=== PATIENT | male | born 1965 | race Caucasian/White ===

== ENCOUNTER 2016-11-29 18:09 | Emergency (ER) | payer OTHER ==
--- NOTE | 2016-11-29 20:06 | ER Document Report ---
ED Medical Screen (RME) - General Chief Complaint: Syncope Stated Complaint: SYNCOPAL EPISODE/RIGHT THUMB PAIN Time Seen by Provider: 11/29/16 19:56 Notes: This 51-year-old male patient who moved here in June of this year and is seen at [facility]. His past medical history is significant for a one-vessel bypass 2 years ago, 2 stents, with a third stent placed when 1 of the initial stents became occluded. He started a job today with [employer]. This is his first day at work. He has not been out working or acclimating to the high humidity and heat we have experienced recently. Reports 2 syncopal episodes: The first 1 was this morning when he was taking a drink of water and aspirated the water, causing him to gag and pass out. The second episode was this afternoon when he was walking up a steep incline or meridian where he had been cleaning dark from around brick, when he got to the top of the heel he became lightheaded and passed out. The patient states he feels well at this time. I have greeted and performed a rapid initial assessment of this patient. A comprehensive ED assessment and evaluation of the patient, analysis of test results and completion of the medical decision making process will be conducted by additional ED providers. TRAVEL OUTSIDE OF THE [place] IN LAST 30 DAYS: No Past Medical History Renal/ Medical History: Denies: Hx Peritoneal Dialysis Physical Exam - Vital signs Vitals: Temp Pulse Resp BP Pulse Ox 99.6 F 101 H 17 105/45 L 97 11/29/16 18:14 11/29/16 18:14 11/29/16 18:14 11/29/16 18:14 11/29/16 18:14 Course - Vital Signs Vital signs: Temp Pulse Resp BP Pulse Ox 99.6 F 101 H 17 105/45 L 97 11/29/16 18:14 11/29/16 18:14 11/29/16 18:14 11/29/16 18:14 11/29/16 18:14
--- NOTE | 2016-11-29 20:32 | EKG REPORT ---
SEVERITY:- ABNORMAL ECG - SINUS RHYTHM LEFT BUNDLE BRANCH BLOCK : Confirmed by: Wayne Carias MD 29-Nov-2016 20:30:49
[2016-11-29 20:44] LABS: HEMOGLOBIN 10.8 g/dL (13.5-17.0); HGB HCT DIFFERENCE 0.4; MEAN CORPUSCULAR HEMOGLOBIN 43.4 pg (27.0-33.4); MEAN CORPUSCULAR HGB CONC 33.8 g/dL (32.0-36.0); RED BLOOD COUNT 2.49 10^6/uL (4.35-5.55); RED CELL DISTRIBUTION WIDTH 15.6 % (11.5-14.0); WHITE BLOOD COUNT 6.3 10^3/uL (4.0-10.5)
[2016-11-29 20:46] LABS: APPEARANCE,URINE CLOUDY; BILIRUBIN,URINE NEGATIVE (NEGATIVE); GLUCOSE, URINE NEGATIVE (NEGATIVE); KETONES,URINE NEGATIVE (NEGATIVE); LEUKOCYTE ESTERASE,URINE TRACE (NEGATIVE); NITRITE,URINE NEGATIVE (NEGATIVE); PROTEIN,URINE 100 mg/dL (NEGATIVE); URINE SPECIFIC GRAVITY 1.017; UROBILINOGEN,URINE NEGATIVE mg/dL (<2.0)
[2016-11-29 20:59] LABS: MEAN CORPUSCULAR VOLUME 128 fl (80-97)
[2016-11-29 21:02] LABS: ALANINE AMINOTRANSFERASE 27 U/L (21-72); ALBUMIN 4.5 g/dL (3.5-5.0); ALKALINE PHOSPHATASE 51 U/L (38-126); ANION GAP 13 (5-19); ASPARTATE AMINO TRANSFERASE 24 U/L (17-59); BILIRUBIN,DIRECT 0.3 mg/dL (0.0-0.4); BILIRUBIN,TOTAL 0.4 mg/dL (0.2-1.3); BLOOD UREA NITROGEN 26 mg/dL (7-20); CALCIUM 10.4 mg/dL (8.4-10.2); CARBON DIOXIDE 26 mmol/L (22-30); CHLORIDE 97 mmol/L (98-107); CREATINE KINASE 198 U/L (55-170); CREATININE RESULT 2.24 mg/dL (0.52-1.25); GLUCOSE 91 mg/dL (75-110); POTASSIUM 4.8 mmol/L (3.6-5.0); SODIUM 135.7 mmol/L (137-145); TOTAL PROTEIN 7.6 g/dL (6.3-8.2)
[2016-11-29 21:04] LABS: BAND NEUTROPHILS % (MANUAL) 1 % (3-5); BASOPHILS % (MANUAL) 0 % (0-2); EOSINOPHILS % (MANUAL) 0 % (0-6); LYMPHOCYTES % (MANUAL) 21 % (13-45); NUCLEATED RED BLOOD CELLS 1 /100 WBC (0); TOTAL CELLS COUNTED 100
--- NOTE | 2016-11-29 21:05 | RADIOLOGY REPORT (SQ) ---
EXAM DESCRIPTION: CHEST PA/LAT COMPLETED DATE/TIME: 11/29/2016 8:27 pm REASON FOR STUDY: syncope x 2 COMPARISON: None. EXAM PARAMETERS: NUMBER OF VIEWS: two views TECHNIQUE: Digital Frontal and Lateral radiographic views of the chest acquired. RADIATION DOSE: NA LIMITATIONS: none FINDINGS: LUNGS AND PLEURA: No acute opacities, masses or pneumothorax. No pleural effusion. MEDIASTINUM AND HILAR STRUCTURES: No masses or contour abnormalities. HEART AND VASCULAR STRUCTURES: Heart normal size. No evidence for failure. BONES: No acute findings. HARDWARE: Left sided stent. OTHER: No other significant finding. IMPRESSION: No acute findings. TECHNICAL DOCUMENTATION: JOB ID: [id number] [employer]- All Rights Reserved
[2016-11-29 21:10] LABS: ACANTHOCYTES SLIGHT; ANISOCYTOSIS SLIGHT; BURR CELLS SLIGHT; OVALOCYTES SLIGHT; POIKILOCYTOSIS SLIGHT; SCHISTOCYTES SLIGHT
[2016-11-29 21:12] LABS: CREATINE KINASE MB 2.04 ng/mL (<4.55); TROPONIN I 0.019 ng/mL
--- NOTE | 2016-11-29 22:02 | ER Document Report ---
ED General - General Chief Complaint: Syncope Stated Complaint: SYNCOPAL EPISODE/RIGHT THUMB PAIN Time Seen by Provider: 11/29/16 19:56 Notes: Patient is a 51-year-old male presents with complaint of syncopal episodes. Patient does have a history of DE in the past. He has had coronary bypass 2 years ago. He has had 3 stents placed. Most recent stent was approximately a year ago. All this was done in [place] with the DE. He recently moved here and is followed by the DE clinic here. He denies any chest pain today. 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 Says he does try to drink water and he gagged on it and passed out. He did not have any chest pain or shortness of breath before or after passing out. He denies a headache. Patient said the same time he passed out he was going up a ramp. He felt hot and sweaty. He says he did pass out. He says he currently feels well. He denies any chest pain or shortness of breath today. He denies any headaches. He denies any weakness or numbness in any of his extremities. He has no other complaints at this time. He denies any chest pain in the last several weeks. TRAVEL OUTSIDE OF THE [place] IN LAST 30 DAYS: No - Related Data Allergies/Adverse Reactions: No Known Allergies Allergy (Unverified 11/29/16 23:13) Past Medical History - Social History Smoking Status: Unknown if Ever Smoked Frequency of alcohol use: None Drug Abuse: None Family History: Reviewed & Not Pertinent Patient has suicidal ideation: No Patient has homicidal ideation: No Renal/ Medical History: Denies: Hx Peritoneal Dialysis Review of Systems - Review of Systems Notes: My Normal Review Basic REVIEW OF SYSTEMS: CONSTITUTIONAL : Denies fever, chills, or sweats. Denies recent illness. EENT: Denies eye, ear, throat, or mouth pain or symptoms. Denies nasal or sinus congestion. CARDIOVASCULAR: Denies chest pain RESPIRATORY: Denies cough, cold, or chest congestion. Denies shortness of breath, difficulty breathing, or wheezing. GASTROINTESTINAL: Denies abdominal pain. Denies nausea, vomiting, or diarrhea. Denies constipation. Last BM: MUSCULOSKELETAL: Denies neck or back pain or joint pain or swelling. SKIN: Denies rash or skin lesions. NEUROLOGICAL: Syncopal episodes 2. denies headache. Denies weakness or paralysis or loss of use of either side. Denies problems with gait or speech. Denies sensory or motor loss. ALL OTHER SYSTEMS REVIEWED AND NEGATIVE. Physical Exam - Vital signs Vitals: Temp Pulse Resp BP Pulse Ox 99.6 F 101 H 17 105/45 L 97 11/29/16 18:14 11/29/16 18:14 11/29/16 18:14 11/29/16 18:14 11/29/16 18:14 - Notes Notes: General Appearance: Well nourished, alert, cooperative, no acute distress, no obvious discomfort. Well-appearing Vitals: reviewed, See vital signs table. Head: no swelling or tenderness to the head Eyes: PERRL, EOMI, Conjuctiva clear Mouth: No decreasd moisture Neck: Supple, no neck tenderness, No thyromegaly Lungs: No wheezing, No rales, No rhonci, No accessory muscle use, good air exchange bilaterally. Heart: Normal rate, Regular rythm, No murmur, no rub Abdomen: Normal BS, soft, No rigidity, No abdominal tenderness, No guarding, no rebound, no abdominal masses, no organomegaly Extremities: strength 5/5 in all extremities, good pulses in all extremities, Patient has swelling and bruising at the base of the right thumb with pain to palpaiton over this area., no edema. Skin: warm, dry, appropriate color, no rash Neuro: speech clear, oriented x 3, normal affect, responds appropriately to questions. Nerves II through XII are intact. Distal sensation intact. Patient moves all extremities without difficulty. Course - Vital Signs Vital signs: Temp Pulse Resp BP Pulse Ox 98.4 F 80 18 121/59 L 96 11/29/16 21:12 11/29/16 21:12 11/29/16 21:12 11/29/16 21:12 11/29/16 21:12 - Laboratory Result Diagrams: 11/29/16 20:15 11/29/16 20:15 Laboratory results interpreted by me: 11/29/16 11/29/16 11/29/16 20:15 20:15 20:20 RBC 2.49 L Hgb 10.8 L Hct 32.0 L MCV 128 H MCH 43.4 H RDW 15.6 H Band Neutrophils % 1 L Sodium 135.7 L Chloride 97 L BUN 26 H Creatinine 2.24 H Est GFR ( Amer) 38 L Est GFR (Non-Af Amer) 31 L Calcium 10.4 H Creatine Kinase 198 H Urine Protein 100 H Urine Blood SMALL H Ur Leukocyte Esterase TRACE H - EKG Interpretation by Me Additional EKG results interpreted by me: 11/29/16 22:01 EKG is reviewed and interpreted by me. EKG shows normal sinus rhythm with a rate of 90 bpm. Patient does have a left bundle branch block. No Old EKG for comparison. PA interval is within normal range. QRS duration QT intervals are prolonged. - Transfer of Care Notes: 11/30/16 00:48 Patient syncopal episode appears consistent with heat exhaustion. He had no concerning symptoms before or after the passing out episode. He had no chest pain or shortness of breath. He had no headache. No focal weakness or numbness. He currently is completely asymptomatic. His troponin and delta troponin are within normal range. EKG shows left bundle branch block which is not surprising being that he has a history of DE and coronary bypass surgery. This time patient will be discharged home but I gave him strict return precautions to return to the ER immediately if he has chest pain, difficulty breathing, head, confusion, or feels unwell. I did give the patient a cock-up splint to wear in order to wear his thumb. On physical exam appears that he could possibly have a gamekeepers type tendon injury of the right thumb. Discharge - Discharge Clinical Impression: Strain of thumb, right Syncope Qualifiers: Syncope type: unspecified Qualified Code(s): R55 - Syncope and collapse Condition: Good Disposition: HOME, SELF-CARE Additional Instructions: Your blood work looking at your heart is normal. There is no evidence of a heart attack. I do not want you to go back to work the rest of this week. Please follow up with your doctor at the [facility] for reevaluation before returning to work. Please stay out of the heat. Please return to the ER immediately if you have any chest pain, difficulty breathing, or recurrent passing out. Return to the ER immediately if you have headache or vomiting. Please continue to wear the splint on your hand for at least 2 weeks. I suspect you may have injured the ligament at the base of your thumb. The splint will allow your thumb to heal appropriately. have your doctor reevaluate your thumb in 2 weeks. Forms: Return to Work
[2016-11-29] MEDS ORDERED: NORMAL SALINE 500 ML IV ONE (22:08)
--- NOTE | 2016-11-29 23:31 | RADIOLOGY REPORT (SQ) ---
EXAM DESCRIPTION: HAND RIGHT 3 VIEWS COMPLETED DATE/TIME: 11/29/2016 10:59 pm REASON FOR STUDY: trauma COMPARISON: None. EXAM PARAMETERS: NUMBER OF VIEWS: Three views. TECHNIQUE: AP, lateral and oblique radiographic images acquired of the right hand. LIMITATIONS: None. FINDINGS: MINERALIZATION: Normal. BONES: No acute fracture or dislocation. No worrisome bone lesions. JOINTS: No effusions. SOFT TISSUES: No soft tissue swelling. No foreign body. OTHER: No other significant finding. IMPRESSION: NO RADIOGRAPHIC EVIDENCE OF ACUTE INJURY. TECHNICAL DOCUMENTATION: JOB ID: [id number] [employer]- All Rights Reserved
[2016-11-30 01:45] VITALS: BP 101/59
[2016-11-30 13:58] LABS: PATH REVIEW PATHOLOGIST REVIEWED
== END 2016-11-30 01:07 | disposition home or self-care (01) ==
LOC: ER 18:09
DX: R55 Syncope and collapse (principal); M79.644 Pain in right finger(s); I25.2 Old myocardial infarction; Z95.1 Presence of aortocoronary bypass graft
CPT/HCPCS: 93005; 99284; 96360; 36415; 82553; 82550; 85025; 80053; 81001; 84484; 71020; 73130; 93010; L3908; J7040

== ENCOUNTER 2017-02-17 00:30 | Emergency (ER) | payer OTHER ==
[2017-02-17] MEDS ORDERED: ASPIRIN 81 MG TABLET, CHEWABLE PO ONE (00:53)
[2017-02-17] MEDS ORDERED: KETOROLAC TROMETHAMINE INJ/PF 30 MG/1 ML SDV IV ONE (01:00)
[2017-02-17] MEDS ORDERED: LIDOCAINE 5% (700 MG) TRANSDERMAL ADH..PATCH TP ONE (01:00)
--- NOTE | 2017-02-17 01:04 | ER Document Report ---
ED General - General Chief Complaint: Chest Pain Stated Complaint: CHEST PAIN Time Seen by Provider: 02/17/17 00:51 Notes: Patient is a 51-year-old male with past medical history of known coronary artery disease status post multiple stenting 2 years ago who presents today with 5 hours of intermittent, stabbing, shooting pain to the left side of his chest. States moving worsens the pain. He has not tried any to relieve the pain. He denies any radiation of the pain into his arms, jaw or back. Denies any associated vomiting, nausea, diaphoresis or dyspnea. States he has had similar symptoms in the past of unclear etiology and states he is uncertain whether or not this feels like when he had a coronary artery disease event. 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 Denies any history of DVT or pulmonary embolus. He does not use any form of anticoagulation. He denies any trauma to the area. TRAVEL OUTSIDE OF THE [place] IN LAST 30 DAYS: No - Related Data Allergies/Adverse Reactions: No Known Allergies Allergy (Unverified 11/29/16 23:13) Past Medical History - General Information source: Patient - Social History Smoking Status: Never Smoker Frequency of alcohol use: None Drug Abuse: None Lives with: Alone Family History: Reviewed & Not Pertinent Renal/ Medical History: Denies: Hx Peritoneal Dialysis Past Surgical History: Reports: Hx Abdominal Surgery - spleen, Hx Cardiac Catheterization - stent x2, Hx Cardiac Surgery - cabg x1 - Immunizations Hx Diphtheria, Pertussis, Tetanus Vaccination: Yes Review of Systems - Review of Systems Notes: Constitutional: Negative for fever. HENT: Negative for sore throat. Eyes: Negative for visual changes. Cardiovascular: Positive for chest pain. Respiratory: Negative for shortness of breath. Gastrointestinal: Negative for abdominal pain, vomiting or diarrhea. Genitourinary: Negative for dysuria. Musculoskeletal: Negative for back pain. Skin: Negative for rash. Neurological: Negative for headaches, weakness or numbness. 10 point ROS negative except as marked above and in HPI. Physical Exam - Vital signs Vitals: Temp Pulse Resp BP Pulse Ox 98.5 F 110 H 18 139/75 H 99 02/17/17 00:37 02/17/17 00:37 02/17/17 00:37 02/17/17 00:37 02/17/17 00:37 Interpretation: Tachycardic Notes: PHYSICAL EXAMINATION: GENERAL: Well-appearing, well-nourished and in no acute distress. HEAD: Atraumatic, normocephalic. EYES: Pupils equal round and reactive to light, extraocular movements intact, sclera anicteric, conjunctiva are normal. ENT: nares patent, oropharynx clear without exudates. Moist mucous membranes. NECK: Normal range of motion, supple without lymphadenopathy LUNGS: Breath sounds clear to auscultation bilaterally and equal. No wheezes rales or rhonchi. Chest wall: Pain on palpation of the lower, lateral left chest wall HEART: Regular rate and rhythm without murmurs ABDOMEN: Soft, nontender, normoactive bowel sounds. No guarding, no rebound. No masses appreciated. EXTREMITIES: Normal range of motion, no pitting or edema. No cyanosis. NEUROLOGICAL: No focal neurological deficits. Moves all extremities spontaneously and on command. PSYCH: Normal mood, normal affect. SKIN: Warm, Dry, normal turgor, no rashes or lesions noted. Course - Re-evaluation Re-evalutation: 02/17/17 01:01 Presentation of chest pain in an otherwise well appearing patient. Low clinical suspicion for ACS given clinical history, exam, EKG without ST elevations or depressions, and negative initial troponin. Patient does have reproducible chest pain on palpation of the left anterior chest wall. Pain is worsened by movement. This seems highly atypical for ACS. Patient was tachycardic on initial presentation although does appear quite anxious and tearful. However given that he does have some degree of pleuritic pain and was tachycardic, will proceed with a d-dimer to further evaluate for possible pulmonary embolus. CXR without evidence of pneumothorax or pneumonia. No widened mediastinum. Aortic dissection also seems unlikely given history, symmetric pulses, CXR, and vitals. Will proceed with a delta troponin after the initial troponin and continue to monitor the patient 02/17/17 03:58 Second troponin remains normal. D-dimer is negative. Patient does have chronic anemia, hemoglobin is slightly decreased from prior although patient does report a history of this. He denies any rectal bleeding. His MCV is 128 suggesting a macrocytic anemia likely secondary to folate or vitamin B12 deficiency as opposed to an acute blood loss anemia. I have instructed the patient that he needs to follow closely with both his grain inspector and his primary care doctor for further evaluation and stress testing. I have also asked him to discuss with his primary doctor his chronic anemia. At this time will discharge with return precautions and follow-up recommendations. Verbal discharge instructions given a the bedside and opportunity for questions given. Medication warnings reviewed. Patient is in agreement with this plan and has verbalized understanding of return precautions and the need for primary care follow-up in the next 24-72 hours. - Vital Signs Vital signs: Temp Pulse Resp BP Pulse Ox 98.5 F 110 H 26 H 104/70 98 02/17/17 00:37 02/17/17 00:37 02/17/17 03:01 02/17/17 03:00 02/17/17 03:01 - Laboratory Result Diagrams: 02/17/17 01:00 02/17/17 01:00 Laboratory results interpreted by me: 02/17/17 02/17/17 01:00 01:00 RBC 2.09 L Hgb 9.3 L Hct 26.6 L MCV 128 H MCH 44.6 H BUN 25 H Creatinine 1.37 H Est GFR (Non-Af Amer) 55 L - Diagnostic Test Radiology reviewed: Image reviewed, Reports reviewed Radiology results interpreted by me: 02/17/17 04:22 Chest x-ray: No acute infiltrate or pneumothorax - EKG Interpretation by Me Additional EKG results interpreted by me: 02/17/17 01:03 Sinus tachycardia. Rate 99. PVCs are present. Left bundle branch block is present. Unchanged from prior. QTC is 483. Discharge - Discharge Clinical Impression: Chest wall pain, Macrocytic anemia Condition: Good Disposition: HOME, SELF-CARE Additional Instructions: You were seen today for chest pain. The exact cause of your pain is unclear. However, based on your cardiac enzyme testing, chest x-ray, and EKG it does not appear that it is from an immediately life-threatening cause at this time. Although your testing here is normal is critical that you follow-up with your primary care physician for continued evaluation of this chest pain and possible stress testing. I recommended you see your physician within the next 24-48 hours to be evaluated for consideration of a stress test. Please return to emergency department immediately if you have worsening of your chest pain, shortness of breath, vomiting, become unable to exert yourself due to pain or difficulty breathing, you pass out, or have any pain that radiates into your arms, jaw, or back. Please also return if you have any additional symptoms that are concerning to you.
[2017-02-17 01:20] LABS: HEMOGLOBIN 9.3 g/dL (13.5-17.0); MEAN CORPUSCULAR HGB CONC 34.9 g/dL (32.0-36.0)
[2017-02-17 01:29] LABS: HEMATOCRIT 26.6 % (37.9-51.0); HGB HCT DIFFERENCE 1.3; MEAN CORPUSCULAR HEMOGLOBIN 44.6 pg (27.0-33.4); RED BLOOD COUNT 2.09 10^6/uL (4.35-5.55); RED CELL DISTRIBUTION WIDTH 13.4 % (11.5-14.0); WHITE BLOOD COUNT 6.8 10^3/uL (4.0-10.5)
[2017-02-17 01:40] LABS: ANION GAP 13 (5-19); BLOOD UREA NITROGEN 25 mg/dL (7-20); CALCIUM 9.7 mg/dL (8.4-10.2); CARBON DIOXIDE 23 mmol/L (22-30); CHLORIDE 101 mmol/L (98-107); CREATINE KINASE 142 U/L (55-170); CREATININE RESULT 1.37 mg/dL (0.52-1.25); GLUCOSE 109 mg/dL (75-110); POTASSIUM 4.4 mmol/L (3.6-5.0); SODIUM 137.1 mmol/L (137-145)
[2017-02-17 01:50] LABS: BASOPHILS % (MANUAL) 0 % (0-2); EOSINOPHILS % (MANUAL) 0 % (0-6); LYMPHOCYTES % (MANUAL) 40 % (13-45); TOTAL CELLS COUNTED 100
[2017-02-17 01:52] LABS: CREATINE KINASE MB 1.26 ng/mL (<4.55); MEAN CORPUSCULAR VOLUME 128 fl (80-97); OVALOCYTES SLIGHT; POIKILOCYTOSIS SLIGHT; POLYCHROMASIA SLIGHT; TEAR DROP CELLS SLIGHT
[2017-02-17 01:58] LABS: TROPONIN I < 0.012 ng/mL
--- NOTE | 2017-02-17 02:21 | RADIOLOGY REPORT (SQ) ---
EXAM DESCRIPTION: CHEST SINGLE VIEW COMPLETED DATE/TIME: 02/17/2017 1:51 am REASON FOR STUDY: chest pain COMPARISON: 11/29/2016. EXAM PARAMETERS: NUMBER OF VIEWS: One view. TECHNIQUE: Single frontal radiographic view of the chest acquired. RADIATION DOSE: NA LIMITATIONS: None. FINDINGS: LUNGS AND PLEURA: No opacities, masses or pneumothorax. No pleural effusion. Prominent in terstitium. MEDIASTINUM AND HILAR STRUCTURES: No masses. Contour normal. HEART AND VASCULAR STRUCTURES: Heart normal in size. Atherosclerosis. Bones: No acute findings. HARDWARE: Stent of the left paracentral upper mediastinum. OTHER: No other significant finding. IMPRESSION: No acute cardiopulmonary findings. TECHNICAL DOCUMENTATION: JOB ID: [id number]
[2017-02-17 05:06] VITALS: BP 122/75
--- NOTE | 2017-02-17 06:12 | EKG REPORT ---
SEVERITY:- ABNORMAL ECG - SINUS TACHYCARDIA VENTRICULAR PREMATURE COMPLEX LEFT BUNDLE BRANCH BLOCK : Confirmed by: Wayne Carias MD 17-Feb-2017 06:11:06
[2017-02-19 10:49] LABS: PATH REVIEW PATHOLOGIST REVIEWED
== END 2017-02-17 05:13 | disposition home or self-care (01) ==
LOC: ER 00:30
DX: R07.89 Other chest pain (principal); D53.9 Nutritional anemia, unspecified; I25.10 Atherosclerotic heart disease of native coronary artery without angina pectoris
CPT/HCPCS: 93005; 99285; 96374; 36415; 82553; 82550; 85025; 80048; 84484; 85379; 71010; 93010; J1885

== ENCOUNTER 2017-04-28 19:16 | Emergency (ER) | payer OTHER ==
[2017-04-28] MEDS ORDERED: NORMAL SALINE 1000 ML 1,000 ML IV ONE (19:51)
[2017-04-28] MEDS ORDERED: KETOROLAC TROMETHAMINE INJ/PF 30 MG/1 ML SDV IV ONE (19:52)
--- NOTE | 2017-04-28 19:53 | ER Document Report ---
ED Medical Screen (RME) - General Chief Complaint: Flu Symptoms Stated Complaint: HEADACHE,COUGH,BODY ACHES Time Seen by Provider: 04/28/17 19:50 Mode of Arrival: Ambulatory Information source: Patient TRAVEL OUTSIDE OF THE [place] IN LAST 30 DAYS: No - HPI Patient complains to provider of: cough, CHAPARRO Onset: Other - pt. with 2-3 day h/o cough, CHAPARRO, and gerneralized arthralgias and myalgias, and low-grade fever. Did get flu shot this year - Related Data Allergies/Adverse Reactions: No Known Allergies Allergy (Verified 04/28/17 19:19) Home Medications: Current Home Medications Unobtainable [Unobtainable] 04/28/17 [History] Past Medical History Renal/ Medical History: Denies: Hx Peritoneal Dialysis Past Surgical History: Reports: Hx Abdominal Surgery - spleen, Hx Cardiac Catheterization - stent x2, Hx Cardiac Surgery - cabg x1 - Immunizations Hx Diphtheria, Pertussis, Tetanus Vaccination: Yes Physical Exam - Vital signs Vitals: Temp Pulse Resp BP Pulse Ox 100.2 F 116 H 16 119/69 96 04/28/17 19:39 04/28/17 19:39 04/28/17 19:39 04/28/17 19:39 04/28/17 19:39 Course - Vital Signs Vital signs: Temp Pulse Resp BP Pulse Ox 100.2 F 116 H 16 119/69 96 04/28/17 19:39 04/28/17 19:39 04/28/17 19:39 04/28/17 19:39 04/28/17 19:39
[2017-04-28 20:42] LABS: HEMATOCRIT 37.9 % (37.9-51.0); HEMOGLOBIN 12.9 g/dL (13.5-17.0); HGB HCT DIFFERENCE 0.8; MEAN CORPUSCULAR HEMOGLOBIN 39.1 pg (27.0-33.4); MEAN CORPUSCULAR HGB CONC 34.1 g/dL (32.0-36.0); RED BLOOD COUNT 3.31 10^6/uL (4.35-5.55); RED CELL DISTRIBUTION WIDTH 14.6 % (11.5-14.0); WHITE BLOOD COUNT 6.8 10^3/uL (4.0-10.5)
--- NOTE | 2017-04-28 20:42 | RADIOLOGY REPORT (SQ) ---
EXAM DESCRIPTION: CHEST PA/LAT COMPLETED DATE/TIME: 04/28/2017 8:29 pm REASON FOR STUDY: cough COMPARISON: 11/29/2016 EXAM PARAMETERS: NUMBER OF VIEWS: two views TECHNIQUE: Digital Frontal and Lateral radiographic views of the chest acquired. RADIATION DOSE: NA LIMITATIONS: none FINDINGS: LUNGS AND PLEURA: Stable pulmonary exam. No acute focal opacities, masses or pneumothorax . No pleural effusion. MEDIASTINUM AND HILAR STRUCTURES: No masses or contour abnormalities. HEART AND VASCULAR STRUCTURES: Heart normal size. No evidence for failure. BONES: No acute findings. HARDWARE: Left upper mediastinal vascular stent. OTHER: No other significant finding. IMPRESSION: No evidence of acute cardiopulmonary abnormality. TECHNICAL DOCUMENTATION: JOB ID: [id number] [employer]- All Rights Reserved
[2017-04-28 20:57] LABS: ALANINE AMINOTRANSFERASE 38 U/L (21-72); ALBUMIN 4.7 g/dL (3.5-5.0); ALKALINE PHOSPHATASE 55 U/L (38-126); ANION GAP 14 (5-19); ASPARTATE AMINO TRANSFERASE 30 U/L (17-59); BILIRUBIN,DIRECT 0.3 mg/dL (0.0-0.4); BILIRUBIN,TOTAL 0.3 mg/dL (0.2-1.3); BLOOD UREA NITROGEN 25 mg/dL (7-20); CALCIUM 9.5 mg/dL (8.4-10.2); CARBON DIOXIDE 26 mmol/L (22-30); CHLORIDE 99 mmol/L (98-107); CREATININE RESULT 1.31 mg/dL (0.52-1.25); GLUCOSE 100 mg/dL (75-110); SODIUM 138.7 mmol/L (137-145); TOTAL PROTEIN 7.7 g/dL (6.3-8.2)
[2017-04-28 21:10] LABS: BASOPHILS % (MANUAL) 2 % (0-2); EOSINOPHILS % (MANUAL) 0 % (0-6); LYMPHOCYTES % (MANUAL) 15 % (13-45); TOTAL CELLS COUNTED 100
[2017-04-28 21:11] LABS: ANISOCYTOSIS SLIGHT
[2017-04-28 21:12] LABS: SMUDGE CELLS PRESENT
[2017-04-28 21:13] LABS: TOXIC VACUOLATION PRESENT
[2017-04-28 21:17] LABS: POLYCHROMASIA SLIGHT
[2017-04-28 21:18] LABS: OVALOCYTES SLIGHT; POIKILOCYTOSIS SLIGHT; TARGET CELLS SLIGHT
[2017-04-28 21:19] LABS: SCHISTOCYTES SLIGHT
[2017-04-28 21:22] LABS: MEAN CORPUSCULAR VOLUME 114 fl (80-97)
--- NOTE | 2017-04-28 23:34 | ER Document Report ---
ED Flu Like - General Chief Complaint: Flu Symptoms Stated Complaint: HEADACHE,COUGH,BODY ACHES Time Seen by Provider: 04/28/17 19:50 Mode of Arrival: Ambulatory Notes: Patient is a 52-year-old male who presents with 3 days of body aches, dry cough , subjective fevers and malaise. He received his flu shot this year. Patient had a cardiac cath 1 week ago and he reports that it was normal. Patient denies shortness of breath, hemoptysis, rash, recent travel, nausea, vomiting, abdominal pain, chest pain, leg swelling or neck stiffness. TRAVEL OUTSIDE OF THE [place] IN LAST 30 DAYS: No - Related Data Allergies/Adverse Reactions: No Known Allergies Allergy (Verified 04/28/17 19:19) Home Medications: Current Home Medications Unobtainable [Unobtainable] 04/28/17 [History] Past Medical History - General Information source: Patient - Social History Smoking Status: Never Smoker Family History: Reviewed & Not Pertinent Patient has suicidal ideation: No Patient has homicidal ideation: No Renal/ Medical History: Denies: Hx Peritoneal Dialysis Past Surgical History: Reports: Hx Abdominal Surgery - spleen, Hx Cardiac Catheterization - stent x2, Hx Cardiac Surgery - cabg x1 - Immunizations Hx Diphtheria, Pertussis, Tetanus Vaccination: Yes Review of Systems - Review of Systems Notes: REVIEW OF SYSTEMS: CONSTITUTIONAL: +fevers, -chills EENT: -eye pain, -difficulty swallowing, -nasal congestion CARDIOVASCULAR:-chest pain, -syncope. RESPIRATORY: +cough, -SOB GASTROINTESTINAL: -abdominal pain, - nausea, -vomiting, -diarrhea GENITOURINARY: -dysuria, -hematuria MUSCULOSKELETAL: -back pain, -neck pain SKIN: -rash or skin lesions. HEMATOLOGIC: -easy bruising or bleeding. LYMPHATIC: -swollen, enlarged glands. NEUROLOGICAL: -altered mental status or loss of consciousness, -headache, - neurologic symptoms PSYCHIATRIC: -anxiety, -depression. ALL OTHER SYSTEMS REVIEWED AND NEGATIVE. Physical Exam - Vital signs Vitals: Temp Pulse Resp BP Pulse Ox 100.2 F 116 H 16 119/69 96 04/28/17 19:39 04/28/17 19:39 04/28/17 19:39 04/28/17 19:39 04/28/17 19:39 - Notes Notes: PHYSICAL EXAMINATION: GENERAL: Well-appearing, well-nourished and in no acute distress. HEAD: Atraumatic, normocephalic. EYES: Pupils equal round and reactive to light, extraocular movements intact, sclera anicteric, conjunctiva are normal. ENT: nares patent, oropharynx clear without exudates. Moist mucous membranes. NECK: Normal range of motion, supple without lymphadenopathy LUNGS: Breath sounds clear to auscultation bilaterally and equal. No wheezes rales or rhonchi. HEART: Tachycardia, regular rhythm, murmur present ABDOMEN: Soft, nontender, normoactive bowel sounds. No guarding, no rebound. No masses appreciated. EXTREMITIES: Normal range of motion, no pitting or edema. No cyanosis. NEUROLOGICAL: Cranial nerves grossly intact. Normal speech, normal gait. Normal sensory and motor exams. PSYCH: Normal mood, normal affect. SKIN: Warm, Dry, normal turgor, no rashes or lesions noted. Course - Re-evaluation Re-evalutation: Patient appears well and is in no acute distress. His blood work, chest x-ray and influenza test are unremarkable. Patient is drinking in the emergency room. After Tylenol, Motrin and fluids, his initial tachycardia improved. Suspect a viral illness causing his symptoms and his influenza swabs were negative. Instructed him to continue staying hydrated, Tylenol Motrin for fever and pain relief and follow-up his primary care physician. Given strict return precautions and he understands. - Vital Signs Vital signs: Temp Pulse Resp BP Pulse Ox 99.7 F 116 H 33 H 125/77 97 04/28/17 23:21 04/28/17 19:39 04/29/17 00:01 04/29/17 00:01 04/29/17 00:01 - Laboratory Result Diagrams: 04/28/17 20:25 04/28/17 20:25 Laboratory results interpreted by me: 04/28/17 04/28/17 20:25 20:25 RBC 3.31 L Hgb 12.9 L MCV 114 H MCH 39.1 H RDW 14.6 H BUN 25 H Creatinine 1.31 H Est GFR (Non-Af Amer) 57 L - Diagnostic Test Radiology reviewed: Image reviewed, Reports reviewed Radiology results interpreted by me: CXR: NAD Discharge - Discharge Clinical Impression: Viral syndrome Condition: Stable Disposition: HOME, SELF-CARE Additional Instructions: INFLUENZA: The physician feels that you have influenza -- the "flu". Influenza is an infection caused by a virus. Symptoms include generalized aching, fever, headache, dry cough, and fatigue. Some patients with the flu also have nausea, vomiting, and diarrhea. The fever and aches usually last two to four days, with the cough persisting another one to two weeks. Treatment of the flu, for the most part, is simply treatment of symptoms. Rest, drink plenty of fluids, and use acetaminophen for fever and aches. Do not take aspirin. There is an anti-viral medication, called Tamiflu, which may help in "type A" flu, but it's not helpful in every case of flu, and only works if started within the first 24 - 48 hours of the start of symptoms. The physician will determine whether this medication can help you. To prevent spread of the virus, use good handwashing. Shared toys should be cleaned with disinfectant. Clean the toilets, sinks, and counter surfaces in bathrooms. Launder clothing in hot water. What are conditions that should receive medical attention? The development of difficulty breathing. Lip color changes to blue or purple. Persistent vomiting and unable to keep liquids down with signs of dehydration such as: dizziness when standing, unable to urinate, or if child/ is crying no tears are noticed. Is less responsive than normal or becomes confused. How do I decrease the spread of flu in my home? Taking care of the sick patient at home: Keep the sick person in a room separate from the common areas of the house. Keep the "sickroom" door closed. If the person with the flu needs to leave the home, they should cover their nose/mouth when coughing or sneezing and wear a disposable (surgical) mask if available. These masks may be available at your local pharmacy, medical supply and hardware store. If the sick person is in common areas of the house, have them wear a surgical mask. If possible, have the sick person use a separate bathroom that should be cleaned daily with a household disinfectant. If you are the caregiver: Avoid being face to face with the sick adult person as much as possible. Try to stay at least 6 feet away and wear a disposable surgical mask when possible. When holding small children who are sick, place their chin on your shoulder so that they will not cough in your face. Wash your hands after you touch the sick person or handle their tissues and laundry. Wear a mask if you leave home, as you may be infected from taking care of someone and not know it yet. Watch yourself and others in the home for flu symptoms and contact your doctor if symptoms occur. NOTE: Antiviral medication used to reduce the symptoms of the flu works only if taken within 48 hours, and best within 24 hours of symptom onset. Household Cleaning, laundry and waste disposal: Tissues and other disposable items used by the sick person should be thrown away in the trash. Wash your hands after touching these used items. No special waste disposal is required. Keep surfaces (especially bedside tables, bathroom surfaces, and toys for children) clean by wiping them down with a safe household disinfectant according to the directions on the product label. Per Center for Disease Control advice, most people will not receive testing to confirm flu. Also based on the person's health history and onset of symptoms, not all patients will receive prescriptions for antiviral medications. If you have questions related to this, please ask your healthcare provider. For more information, you can call the Centers for Disease Control and Prevention (CDC) Hotline at 9-431-EPY-INFO This line is available in [place] [employer] and [place], 24 hours a day, 7 days a week. Or www.[employer] or www.cdc.gov Flu-Like Illness Home Instructions: The influenza virus infection can cause a wide rage of symptoms, including: Fever, cough, sore throat, body aches, headaches, chills, fatigue, with some patients reporting diarrhea and vomiting Like seasonal influenza A, H1N1 ("swine flu")in humans can vary in severity from mild to severe Severe illness with pneumonia, respiratory failure and even is possible Certain groups might be more likely to develop a severe illness from H1N1 infection. Sometimes bacterial infections may occur at the same time as or after infection with influenza viruses and lead to pneumonias, ear infections, or sinus infections. How Flu Spreads The main way that influenza viruses spread is through respiratory droplets of coughs and sneezes. This can happen when someone with the infection coughs or sneezes and the particles fly through the air and land on other people and surfaces. If the person covers their mouth and nose with their hand but does not wash their hands immediately, then these germs are passed onto the next object that they touch. People with Influenza A or suspected H1N1 (swine flu) who are cared for at home should: Check with their doctor about any special care that they might need if they are or have a health condition such as diabetes, heart disease, asthma or emphysema. Also, limit caregiver to one (if possible). women or those with chronic health conditions should not take care of the flu patient unless necessary. Check with their doctor about whether or not medications are needed that may lessen the symptoms of the flu. Stay at home until 24 hours fever free without the use of fever reducing medication. Get plenty of rest and avoid other healthy people in your home. Drink plenty of clear liquids to keep from getting dehydrated. Take medications like Tylenol (Acetaminophen), Advil/Motrin/Nuprin ( Ibuprofen) or Aleve (Naproxen) for fevers and aches. All children under the age of 18 years of age should not take aspirin or products containing aspirin (e.g. Pepto Bismol), as this can cause a rare serious illness called Ai Syndrome. Over the counter medications for flu and colds may help, but it is very important to follow the package directions. Remember that the medicine may help the symptoms, but it will not help prevent others from getting sick if they are around you. Cover coughs and sneezes using your bent arm. Clean hands with soap and water or an alcohol-based hand rub often, especially after using tissues to cough or sneeze. Encourage hand washing frequently for all people living in the home! The sick person should not have visitors other than caregivers. Encourage concerned loved ones to call instead of visit. Avoid close contact with others-do not go to work or school while sick. USE OF ACETAMINOPHEN (Tylenol): Acetaminophen may be taken for pain relief or fever control. It's much safer than aspirin, offering a wider range of "safe" dosages. It is safe during . Some brand names are Tylenol, Panadol, Datril, Anacin 3, Tempra, and Liquiprin. Acetaminophen can be repeated every four hours. The following are maximum recommended dosages: WEIGHT Dose Drops Elixir Chewable( 80mg) (LBS.) drprs=droppers tsp=teaspoon 6 40 mg 0.4 ml (1/2) 6-11 80 mg 0.8 ml (full) tsp 1 tab 12-16 120 mg 1 1/2 drprs 3/4 tsp 1 1/2 tabs 17-23 160 mg 2 drprs 1 tsp 2 tabs 24-30 240 mg 3 drprs 1 1/2 tsp 3 tabs 30-35 320 mg 2 tsp 4 tabs 36-41 360 mg 2 1/4 tsp 4 1/2 tabs 42-47 400 mg 2 1/2 tsp 5 tabs 48-53 480 mg 3 tsp 6 tabs 54-59 520 mg 3 1/4 tsp 6 1/2 tabs 60-64 560 mg 3 1/2 tsp 7 tabs 65-70 600 mg 3 3/4 tsp 7 1/2 tabs 71-76 640 mg 4 tsp 8 tabs 77-82 720 mg 4 1/2 tsp 9 tabs 83-88 800 mg 5 tsp 10 tabs >89 pounds or adults 650 mg to 900 mg Acetaminophen can be repeated every four hours. Maximum dose not to exceed 4000 mg a day. These maximum recommended dosages are slightly higher than the dosages written on the product container, but these dosages are very safe and below the toxic dosage for acetaminophen. FOLLOW-UP CARE: If you have been referred to a physician for follow-up care, call the physician s office for an appointment as you were instructed or within the next two days. If you experience worsening or a significant change in your symptoms, notify the physician immediately or return to the Emergency Department at any time for re-evaluation.
[2017-04-28] MEDS ORDERED: IBUPROFEN 600 MG TABLET PO ONE (23:37)
[2017-04-28] MEDS ORDERED: ACETAMINOPHEN 325 MG TABLET PO ONE (23:37)
[2017-04-29 00:18] VITALS: BP 125/77
== END 2017-04-29 00:27 | disposition home or self-care (01) ==
LOC: ER 19:16
DX: B34.9 Viral infection, unspecified (principal); R05 Cough; R50.9 Fever, unspecified; R53.81 Other malaise; R51 Headache; R00.0 Tachycardia, unspecified; R01.1 Cardiac murmur, unspecified; Z95.5 Presence of coronary angioplasty implant and graft; Z95.1 Presence of aortocoronary bypass graft
CPT/HCPCS: 36415; 71020; 80053; 85025; 87804; 99284

== ENCOUNTER 2017-04-30 19:25 | Emergency (ER) | payer OTHER ==
[2017-04-30 19:36] VITALS: BP 124/60
[2017-04-30] MEDS ORDERED: IPRATROPIUM/ALBUTEROL 0.5-2.5 MG/3 ML AMPUL NEB ONE (20:01)
--- NOTE | 2017-04-30 20:10 | ER Document Report ---
ED Medical Screen (RME) - General Chief Complaint: Breathing Difficulty Stated Complaint: SHORTNESS OF BREATH Time Seen by Provider: 04/30/17 20:01 Notes: 52 year old male, chief complaint of shortness of breath, states he is having some coughing episodes, states he coughed, got short of breath, passed out and turned blue [employer]UNTER and also last night. He also reports dyspnea on exertion and general shortness of breath. States he feels okay sitting at this moment. Denies specific chest pain. He had a cardiac catheterization 1 week ago, states it was clear, hx of stents in the past. On a blood thinner does not know the name, denies history of blood clots. Denies smoking, COPD/Asthma. TRAVEL OUTSIDE OF THE [place] IN LAST 30 DAYS: No - Related Data Allergies/Adverse Reactions: No Known Allergies Allergy (Verified 04/30/17 19:28) Past Medical History Renal/ Medical History: Denies: Hx Peritoneal Dialysis Past Surgical History: Reports: Hx Abdominal Surgery - spleen, Hx Cardiac Catheterization - stent x2, Hx Cardiac Surgery - cabg x1 - Immunizations Hx Diphtheria, Pertussis, Tetanus Vaccination: Yes Physical Exam - Vital signs Vitals: Temp Pulse Resp BP Pulse Ox 98.1 F 100 21 H 124/60 98 04/30/17 19:35 04/30/17 19:35 04/30/17 19:35 04/30/17 19:35 04/30/17 19:35 - Respiratory Respiratory status: No respiratory distress. No: Labored, Tachypnea Breath sounds: Decreased air movement, Rales, Wheezing Course - Re-evaluation Re-evalutation: Has expiratory wheezes on exam, a few questionable rales. No distress on exam, talkative, unremarkable vital signs. Workup pending. - Vital Signs Vital signs: Temp Pulse Resp BP Pulse Ox 98.1 F 100 21 H 124/60 98 04/30/17 19:35 04/30/17 19:35 04/30/17 19:35 04/30/17 19:35 04/30/17 19:35
--- NOTE | 2017-04-30 20:47 | EKG REPORT ---
SEVERITY:- ABNORMAL ECG - SINUS RHYTHM LEFT BUNDLE BRANCH BLOCK : Confirmed by: Bk Abreu 30-Apr-2017 20:47:07
--- NOTE | 2017-04-30 21:04 | RADIOLOGY REPORT (SQ) ---
EXAM DESCRIPTION: CHEST SINGLE VIEW COMPLETED DATE/TIME: 04/30/2017 8:32 pm REASON FOR STUDY: shortness of breath COMPARISON: 04/28/2017 EXAM PARAMETERS: NUMBER OF VIEWS: One view. TECHNIQUE: Single frontal radiographic view of the chest acquired. RADIATION DOSE: NA LIMITATIONS: None. FINDINGS: LUNGS AND PLEURA: No opacities, masses or pneumothorax. No pleural effusion. Chronic appe aring changes appears stable. MEDIASTINUM AND HILAR STRUCTURES: No masses. Contour normal. HEART AND VASCULAR STRUCTURES: The configuration of the heart and mediastinal structures is unchanged . BONES: No acute findings. HARDWARE: Left upper mediastinal vascular stent is unchanged. OTHER: No other significant finding. IMPRESSION: No significant interval change. No acute findings. Other findings as noted above TECHNICAL DOCUMENTATION: JOB ID: [id number]- All Rights Reserved
[2017-04-30 21:08] LABS: ABSOLUTE EOSINOPHILS # (AUTO) 0.1 10^3/uL (0.0-0.6); ABSOLUTE LYMPHOCYTES (AUTO) 1.6 10^3/uL (0.5-4.7); ABSOLUTE MONOCYTES (AUTO) 0.9 10^3/uL (0.1-1.4); ABSOLUTE NEUT (AUTO) 2.5 10^3/uL (1.7-8.2); BASOPHILS % (AUTO) 0.6 % (0-2); EOSINOPHILS % (AUTO) 1.5 % (0-6); HEMATOCRIT 35.5 % (37.9-51.0); HEMOGLOBIN 12.4 g/dL (13.5-17.0); HGB HCT DIFFERENCE 1.7; LYMPHOCYTES % (AUTO) 30.9 % (13-45); MEAN CORPUSCULAR HEMOGLOBIN 39.9 pg (27.0-33.4); MEAN CORPUSCULAR HGB CONC 35.1 g/dL (32.0-36.0); MEAN CORPUSCULAR VOLUME 114 fl (80-97); MONOCYTES % (AUTO) 17.2 % (3-13); RED BLOOD COUNT 3.12 10^6/uL (4.35-5.55); RED CELL DISTRIBUTION WIDTH 14.6 % (11.5-14.0); SEGMENTED NEUTROPHILS % (AUTO) 49.8 % (42-78); WHITE BLOOD COUNT 5.1 10^3/uL (4.0-10.5)
[2017-04-30 21:19] LABS: ALANINE AMINOTRANSFERASE 34 U/L (21-72); ALBUMIN 4.3 g/dL (3.5-5.0); ALKALINE PHOSPHATASE 62 U/L (38-126); ANION GAP 14 (5-19); ASPARTATE AMINO TRANSFERASE 25 U/L (17-59); BILIRUBIN,DIRECT 0.3 mg/dL (0.0-0.4); BILIRUBIN,TOTAL 0.3 mg/dL (0.2-1.3); BLOOD UREA NITROGEN 26 mg/dL (7-20); CARBON DIOXIDE 25 mmol/L (22-30); CHLORIDE 99 mmol/L (98-107); CREATINE KINASE 135 U/L (55-170); CREATININE RESULT 1.22 mg/dL (0.52-1.25); GLUCOSE 104 mg/dL (75-110); POTASSIUM 4.6 mmol/L (3.6-5.0); SODIUM 137.5 mmol/L (137-145)
[2017-04-30 21:40] LABS: ANISOCYTOSIS SLIGHT; TROPONIN I < 0.012 ng/mL
--- NOTE | 2017-05-01 00:36 | ER Document Report ---
ED General - General Chief Complaint: Breathing Difficulty Stated Complaint: SHORTNESS OF BREATH Time Seen by Provider: 04/30/17 20:01 Notes: Patient is 52-year-old male who presents with complaint of cough and congestion. This report sounds of it may be patient had a syncopal episode during coughing however patient's family members at bedside and says that the patient actually had an episode where he start convulsing as if he was having a seizure. She said this lasts approximately a minute and a half. She did happen once today and once yesterday. Patient denies any headaches. Denies any neck pain. He says had some subjective fevers at home. He was seen here 2 days ago and diagnosed with a viral type illness. Tonight he says he has had a lot of wheezing. He does not smoke. He has been more congested. He denies previous history of seizures. He has never seen a surgeon about seizures. Denies any recent head trauma or injuries. On exam patient does have a large abdomen the patient says this is chronic and normal for him. He has no history of alcohol abuse. No history of liver disease. He does have a history of Hodgkin's lymphoma as a child where he had to have abdominal surgery. He has had no recurrence of the Hodgkin's disease. Does have history of coronary disease. He had a heart catheterization just over week ago which was negative. He says only chest pain he has is when he coughs. TRAVEL OUTSIDE OF THE [place] IN LAST 30 DAYS: No - Related Data Allergies/Adverse Reactions: No Known Allergies Allergy (Verified 04/30/17 19:28) Home Medications: Current Home Medications Aspirin [Adult Low Dose Aspirin EC] 81 mg PO DAILY 05/01/17 [History] Atorvastatin Calcium 80 mg PO DAILY 05/01/17 [History] Calcium Carbonate [Calcium] 500 mg PO DAILY 05/01/17 [History] Cholecalciferol (Vitamin D3) [Vitamin D3] 1,000 unit PO DAILY 05/01/17 [History] Cholecalciferol (Vitamin D3) [Vitamin D3] 1,000 units PO DAILY 05/01/17 [History ] Furosemide 20 mg PO DAILY 05/01/17 [History] Hydroxyurea 500 mg PO Q48HS 05/01/17 [History] Levothyroxine Sodium [Synthroid 0.025 mg Tablet] 0.175 mg PO DAILY 05/01/17 [ History] Lisinopril 10 mg PO DAILY 05/01/17 [History] Metoprolol Succinate 25 mg PO DAILY 05/01/17 [History] Mirtazapine 15 mg PO DAILY 05/01/17 [History] Sertraline HCl 100 mg PO DAILY 05/01/17 [History] Ticagrelor [Brilinta] 90 mg PO BID 05/01/17 [History] Past Medical History - Social History Smoking Status: Never Smoker Frequency of alcohol use: None Drug Abuse: None Family History: Reviewed & Not Pertinent Patient has suicidal ideation: No Patient has homicidal ideation: No Renal/ Medical History: Denies: Hx Peritoneal Dialysis Past Surgical History: Reports: Hx Abdominal Surgery - spleen, Hx Cardiac Catheterization - stent x2, Hx Cardiac Surgery - cabg x1 - Immunizations Hx Diphtheria, Pertussis, Tetanus Vaccination: Yes Review of Systems - Review of Systems Notes: My Normal Review Basic REVIEW OF SYSTEMS: CONSTITUTIONAL : subjective fever EENT: Nasal and sinus congestion. CARDIOVASCULAR: chest pain only with cough. RESPIRATORY: cough and wheezing GASTROINTESTINAL: Denies abdominal pain. Denies nausea, vomiting, or diarrhea. Denies constipation. Last BM: GENITOURINARY: Denies difficulty urinating, painful urination, burning, frequency, or blood in urine. MUSCULOSKELETAL: Denies neck or back pain or joint pain or swelling. SKIN: Denies rash or skin lesions. HEMATOLOGIC : Denies easy bruising or bleeding. NEUROLOGICAL: syncope vs. seizure ALL OTHER SYSTEMS REVIEWED AND NEGATIVE. Physical Exam - Vital signs Vitals: Temp Pulse Resp BP Pulse Ox 98.1 F 100 21 H 124/60 98 04/30/17 19:35 04/30/17 19:35 04/30/17 19:35 04/30/17 19:35 04/30/17 19:35 - Notes Notes: General Appearance: Well nourished, alert, cooperative, no acute distress, no obvious discomfort. Well-appearing. Vitals: reviewed, See vital signs table. Head: no swelling or tenderness to the head Eyes: PERRL, EOMI, Conjuctiva clear Mouth: No decreasd moisture. Patient does have tongue biting over anterior tongue. Throat: No tonsillar inflammation, No airway obstruction, Neck: Supple, no neck tenderness, Lungs: diffuse wheezing, No rales, diffuse rhonci, No accessory muscle use, fair air exchange bilaterally. Heart: Normal rate, Regular rythm, No murmur, no rub Chest wall: Scar over chest from previous cardiac surgery. Abdomen: Normal BS, soft, No rigidity, No abdominal tenderness, No guarding, no rebound, . Patient does have a large abdomen which he says is chronic for him. He does have a large scar over his abdomen which says is related to his surgery as a child from Hodgkin's lymphoma. Extremities: strength 5/5 in all extremities, good pulses in all extremities, no swelling or tenderness in the extremities, no edema. Skin: warm, dry, appropriate color, no rash Neuro: speech clear, oriented x 3, normal affect, responds appropriately to questions. Cranial nerves II through XII are intact. Distal sensation intact. Patient was all extremities without difficulty. Course - Re-evaluation Re-evalutation: 05/01/17 06:05 Patient appears to have sinusitis and bronchitis. The radiologist did read CT scan was possible fungal sinusitis. This particular radiologist does place for sinusitis on his differential and CT scans very frequently. I do not suspect this patient has fungal sinusitis. He does not have a history of diabetes, alcoholism, HIV, and is not currently neutropenic or immunosuppressed. Clinically he looks very well. He is awake and alert without severe headache or confusion. His symptoms and history consistent with that of a upper respiratory infection most likely into a bacterial sinusitis. I will therefore place him Augmentin. Because of the differential that the radiologist put that we will still have the patient follow-up closely with ENT. I talked to the patient about this and he is agreeable to this. I informed him he must return to ER immediately if he feels confused unwell. Patient came in with a lot of wheezing and rhonchi. His heart rate to become tachycardic during stay but there was only after his DuoNeb treatments. His heart rate is back to normal now. Heart rate is 91. He looks well. His lung [place] are much improved. His coughing is decreased quite a bit. Will place him on a albuterol inhaler and place him on steroids for bronchitis. His history and what his family member describes does sound like a seizure. On clear why patient could be having seizures. He still may be having some stress of syncope with some associated tremor after blacking out being that these episodes seem to happen after coughing; however, the patient does have segments of tongue biting therefore I think it is appropriate to place him on antiepileptic and have him follow-up closely with urology. Informed the patient if he has recurrent seizures that he should return to the ER. Informed patient he must return to ER immediately if has difficulty breathing, recurrent seizures, fever, confusion , does not feel well, or if he has further concerns. Patient agrees with plan will be discharged home. CT scan also did mention possible mass in the lung [place]. I did put this in the patient's discharge instructions encouraged him to follow-up for repeat CT scan. Dictation of this chart was performed using voice recognition software; therefore, there may be some unintended grammatical errors. - Vital Signs Vital signs: Temp Pulse Resp BP Pulse Ox 98.1 F 100 20 124/60 100 04/30/17 19:35 04/30/17 19:35 05/01/17 02:00 04/30/17 19:35 05/01/17 02:00 - Laboratory Result Diagrams: 04/30/17 20:30 04/30/17 20:30 Laboratory results interpreted by me: 04/30/17 04/30/17 20:30 20:30 RBC 3.12 L Hgb 12.4 L Hct 35.5 L MCV 114 H MCH 39.9 H RDW 14.6 H Monocytes % 17.2 H BUN 26 H - EKG Interpretation by Me Additional EKG results interpreted by me: 05/01/17 00:35 EKG is reviewed and interpreted by me. EKG shows sinus rhythm with a rate of 91 bpm. Patient has left bundle branch block with typical ST segment changes which are unchanged in comparison to his previous EKG from February 17, 2017. WV interval is within normal range. QRS duration QTc intervals are prolonged. 05/01/17 00:38 EKG #2 is reviewed and interpreted by me. EKG shows sinus tachycardia with rate of [address] segment changes. Patient's EKG still shows left bundle branch block. WV interval is within normal range. QRS duration QTc intervals are prolonged. Single PVC. Discharge - Discharge Clinical Impression: Bronchitis, Seizure Sinusitis Qualifiers: Sinusitis location: unspecified location Chronicity: acute Recurrence: not specified as recurrent Qualified Code(s): J01.90 - Acute sinusitis, unspecified Condition: Good Disposition: HOME, SELF-CARE Additional Instructions: Your history suggests that you are having seizures. We will start you on a seizure medication but we need you to follow-up with the neurologist, Dr. Salcedo, for reevaluation and further workup of seizures. You cannot drive until cleared by a neurologist. You cannot operate machinery until cleared by a neurologist. Your CT scan shows sinusitis. The radiologist says that there is a possibility of fungal sinusitis. Your clinical presentation is not consistent with a fungal sinusitis. Based on your recent congestion and coughing I suspect that you probably have a bacterial sinusitis. I will place you on an antibiotic. Please follow-up with ear nose and throat doctor for reevaluation. Your lungs had a lot of wheezing and rhonchi when you first arrived. This is much improved after the breathing treatments and medications we gave you. Most likely you have a bronchitis which frequently will happen in conjunction with sinusitis. Please do not smoke. Please follow-up with your doctor in the next 1-2 days for close reevaluation. Please return to the ER immediately if you have severe headaches, vomiting, high fevers, recurrent seizures, difficulty breathing, or if you feel unwell. I have given you an inhaler. Please do 2 puffs every 4 hours as needed for wheezing and difficulty breathing. Of note, your CT scan did show what appears to be a lesion in your lung [place]. This is unlikely to be cancer, but cancer is still always possible and therefore you need to have your primary care doctor obtain a repeat CT scan or MRI in 2-3 months for reevaluation. Prescriptions: Amox Tr/Potassium Clavulanate [Augmentin 875-125 Tablet] 1 tab PO BID 10 Days tablet Levetiracetam [Keppra 500 mg Tablet] 500 mg PO Q12 #60 tablet Prednisone [Deltasone 20 mg Tablet] 3 tab PO DAILY 4 Days tablet Referrals: EMILY SILVA DO [ASSOCIATE] - Follow up in 3-5 days SUDHEER SALCEDO MD [ACTIVE STAFF] - Follow up in 3-5 days SUZI DICK NP [Primary Care Provider] - Follow up tomorrow
[2017-05-01] MEDS ORDERED: NORMAL SALINE 500 ML IV ONE (00:53)
[2017-05-01] MEDS ORDERED: IPRATROPIUM/ALBUTEROL 0.5-2.5 MG/3 ML AMPUL NEB ONE (01:01)
[2017-05-01] MEDS ORDERED: LEVETIRACETAM 500 MG/NACL-ISO 500 MG/100 ML RTUPB IV ONE (02:37)
[2017-05-01] MEDS ORDERED: METHYLPREDNISOLONE INJ 125 MG/2 ML SDV IV ONE (02:38)
--- NOTE | 2017-05-01 02:56 | RADIOLOGY REPORT (SQ) ---
Exam: CTA, chest with contrast. INDICATION: Dyspnea. COMPARISON: CR, chest, 04/30/2017. TECHNIQUE: 100 mL Isovue-370, 583 DLP dose reduction. Limitation: None. FINDINGS: Mild reticular nodularity of bilateral upper lobes includes a cluster of small pulmonary nodules measuring up to 0.3 cm each of the left upper lobe; and mild tree-in-bud interstitial markings of the right lower lobe. Small nodular thickening of the left oblique fissure, image 50 of series 4. No evidence of significant pulmonary emboli. No right ventricular strain. Atherosclerosis. Moderate coronary arterial calcification stenting. Likely benign left renal cysts measure up to 2.4 cm each, partially imaged. Moderate diffuse idiopathic skeletal hyperostosis. Remaining inferior neck and upper abdomen appear grossly intact. Impression: 1. Interstitial markings include a cluster small pulmonary nodules of the left upper lobe. Infectious, inflammatory, neoplastic processes are in the differential diagnosis. Contrast CT surveillance recommended within three months. 2. No evidence of pulmonary embolus.
[2017-05-01] MEDS: MAGNESIUM SULFATE/D5W 1 GM/100 ML RTUPB IV SCH ×2 (03:20→04:06)
--- NOTE | 2017-05-01 03:31 | RADIOLOGY REPORT (SQ) ---
Exam: CT of the head without contrast. INDICATION: Seizure. COMPARISON: None. TECHNIQUE: No contrast. 1163 DLP dose reduction. Limitations: None. FINDINGS: Dense developmental bilateral basal ganglia calcification. Mild cerebral volume loss. Mild-moderate diminished white matter density in lobe subcortical components. Moderate left maxillary mucosal thickening and moderate air-fluid level with hyperdense components of the left maxillary sinus. Mild ethmoid mucosal thickening. IMPRESSION: 1. Left maxillary sinusitis with acute inflammatory components and hyperdensity consistent with fungal superinfection. 2. Mild-moderate white matter microangiopathy pattern advanced for age. Cannot exclude other white matter processes. Further evaluation with MRI of the brain recommended.
[2017-05-01] MEDS ORDERED: ALBUTEROL SULFATE HFA (90 MCG/PUFF) 8 GM MDI (1 MDI/ER DISP) IH ONE (05:24)
--- NOTE | 2017-05-01 06:21 | EKG REPORT ---
SEVERITY:- ABNORMAL ECG - SINUS TACHYCARDIA VENTRICULAR PREMATURE COMPLEX LEFT BUNDLE BRANCH BLOCK : Confirmed by: Bk Abreu 01-May-2017 06:20:59
== END 2017-05-01 06:07 | disposition home or self-care (01) ==
LOC: ER 19:25
DX: J40 Bronchitis, not specified as acute or chronic (principal); J01.90 Acute sinusitis, unspecified; R56.9 Unspecified convulsions; R06.02 Shortness of breath; R05 Cough; R09.81 Nasal congestion; Z79.899 Other long term (current) drug therapy
CPT/HCPCS: 93005 ×2; 94640 ×2; 99285; 96361; 96375; 96365; 36415; 82550; 85025; 80053; 84484; 83880; 71010; 70450; 71275; 93010 ×2; J2930; J3475; J7040; J3490; J1953; J7620 ×2

== ENCOUNTER 2018-04-11 11:31 | Emergency (ER) | payer OTHER ==
[2018-04-11] MEDS ORDERED: ASPIRIN 81 MG TABLET, CHEWABLE PO ONE (12:29)
--- NOTE | 2018-04-11 12:30 | ER Document Report ---
ED Medical Screen (RME) - General Chief Complaint: Chest Pain > 30 Stated Complaint: CHEST PAIN Time Seen by Provider: 04/11/18 12:24 Notes: 53 years old male with a history of seizure disorder hypertension was having chest pain for the last 2 weeks sometimes radiating to the arm. Was seen by the [facility] and referred here to rule out coronary artery disease. He had a history of coronary artery bypass surgery. TRAVEL OUTSIDE OF THE [place] IN LAST 30 DAYS: No - Related Data Allergies/Adverse Reactions: No Known Allergies Allergy (Verified 04/11/18 11:32) Past Medical History - Social History Chew tobacco use (# tins/day): No Frequency of alcohol use: None Drug Abuse: None Renal/ Medical History: Denies: Hx Peritoneal Dialysis Past Surgical History: Reports: Hx Abdominal Surgery - spleen, Hx Cardiac Catheterization - stent x2, Hx Cardiac Surgery - cabg x1 - Immunizations Hx Diphtheria, Pertussis, Tetanus Vaccination: Yes Physical Exam - Vital signs Vitals: Temp Pulse Resp BP Pulse Ox 98.3 F 96 18 130/70 H 96 04/11/18 11:42 04/11/18 11:42 04/11/18 11:42 04/11/18 11:42 04/11/18 11:42 Course - Vital Signs Vital signs: Temp Pulse Resp BP Pulse Ox 98.3 F 96 18 130/70 H 96 04/11/18 11:42 04/11/18 11:42 04/11/18 11:42 04/11/18 11:42 04/11/18 11:42 Doctor's Discharge - Discharge Referrals: SUZI DICK IMPLEMENTATION DIRECTOR [Primary Care Provider] - Follow up as needed
[2018-04-11] MEDS ORDERED: ASPIRIN 81 MG TABLET, CHEWABLE ONE (13:16)
--- NOTE | 2018-04-11 13:27 | RADIOLOGY REPORT (SQ) ---
EXAM DESCRIPTION: CHEST SINGLE VIEW COMPLETED DATE/TIME: 04/11/2018 1:06 pm REASON FOR STUDY: Chest pain COMPARISON: 04/30/2017 EXAM PARAMETERS: NUMBER OF VIEWS: One view. TECHNIQUE: Single frontal radiographic view of the chest acquired. RADIATION DOSE: NA LIMITATIONS: None. FINDINGS: LUNGS AND PLEURA: No opacities, masses or pneumothorax. No pleural effusion. MEDIASTINUM AND HILAR STRUCTURES: No masses. Contour normal. HEART AND VASCULAR STRUCTURES: Heart size is borderline with slight left ventricular prominence. No pulmonary edema. BONES: No acute findings. HARDWARE: None in the chest. OTHER: No other significant finding. IMPRESSION: Borderline cardiomegaly with no pulmonary edema. TECHNICAL DOCUMENTATION: JOB ID: [id number] [email or web address] All Rights Reserved Reading location - IP/workstation name: [email or web address]
[2018-04-11 13:42] LABS: ABSOLUTE BASOPHILS # (AUTO) 0.1 10^3/uL (0.0-0.2); ABSOLUTE EOSINOPHILS # (AUTO) 0.1 10^3/uL (0.0-0.6); ABSOLUTE LYMPHOCYTES (AUTO) 1.6 10^3/uL (0.5-4.7); ABSOLUTE MONOCYTES (AUTO) 1.1 10^3/uL (0.1-1.4); BASOPHILS % (AUTO) 1.1 % (0-2); EOSINOPHILS % (AUTO) 1.3 % (0-6); HEMATOCRIT 37.7 % (37.9-51.0); HEMOGLOBIN 12.9 g/dL (13.5-17.0); LYMPHOCYTES % (AUTO) 20.3 % (13-45); MEAN CORPUSCULAR HGB CONC 34.3 g/dL (32.0-36.0); MEAN CORPUSCULAR VOLUME 105 fl (80-97); MONOCYTES % (AUTO) 13.7 % (3-13); PLATELET COUNT 485 10^3/uL (150-450); RED CELL DISTRIBUTION WIDTH 15.3 % (11.5-14.0); SEGMENTED NEUTROPHILS % (AUTO) 63.6 % (42-78); TOTAL CELLS COUNTED % (AUTO) 100 %; WHITE BLOOD COUNT 7.8 10^3/uL (4.0-10.5)
[2018-04-11 13:56] LABS: ALANINE AMINOTRANSFERASE 26 U/L (21-72); ALBUMIN 4.5 g/dL (3.5-5.0); ALKALINE PHOSPHATASE 53 U/L (38-126); ANION GAP 13 (5-19); ASPARTATE AMINO TRANSFERASE 35 U/L (17-59); BILIRUBIN,DIRECT 0.3 mg/dL (0.0-0.4); BILIRUBIN,TOTAL 0.6 mg/dL (0.2-1.3); BLOOD UREA NITROGEN 23 mg/dL (7-20); CALCIUM 9.7 mg/dL (8.4-10.2); CARBON DIOXIDE 29 mmol/L (22-30); CHLORIDE 99 mmol/L (98-107); CREATINE KINASE 155 U/L (55-170); GLUCOSE 80 mg/dL (75-110); POTASSIUM 5.1 mmol/L (3.6-5.0); TOTAL PROTEIN 7.4 g/dL (6.3-8.2)
[2018-04-11 14:07] LABS: CREATINE KINASE MB 2.57 ng/mL (<4.55); TROPONIN I 0.014 ng/mL
[2018-04-11] MEDS ORDERED: METHYLPREDNISOLONE INJ 125 MG/2 ML SDV IV ONE (15:02)
[2018-04-11] MEDS ORDERED: IPRATROPIUM/ALBUTEROL 0.5-2.5 MG/3 ML AMPUL NEB ONE (15:02)
--- NOTE | 2018-04-11 15:04 | ER Document Report ---
ED General - General Chief Complaint: Chest Pain > 30 Stated Complaint: CHEST PAIN Time Seen by Provider: 04/11/18 12:24 Mode of Arrival: Ambulatory Information source: Patient Notes: 53-year-old male with a past medical history of coronary artery disease, hypertension, hyperlipidemia presents emergency department complaints of chest pain. He states that his symptoms have been intermittent over the last 2 months. He states that he began having some chest pain this morning. He describes it as a throbbing, dull, aching sensation in the left chest. He denies any radiation of the pain. He denies any exacerbating factors. He states that EMS gave him aspirin and this resolved his pain. Patient currently denies any current chest pain. Only episode that started this morning. He denies any fever, chills, rhinorrhea, sore throat, cough. He denies a history of COPD or congestive heart failure. Patient states that he does have a history of coronary artery disease and had a normal cath done in April 2017. He is currently on Brilinta. He does have multiple stents placed. TRAVEL OUTSIDE OF THE [place] IN LAST 30 DAYS: No - HPI Onset: This morning Onset/Duration: Gradual Quality of pain: No pain Pain Level: Denies Associated symptoms: Shortness of breath Exacerbated by: Denies Relieved by: Other - aspirin Similar symptoms previously: Yes Recently seen / treated by doctor: No - Related Data Allergies/Adverse Reactions: No Known Allergies Allergy (Verified 04/11/18 11:32) Past Medical History - General Information source: Patient - Social History Smoking Status: Never Smoker Chew tobacco use (# tins/day): No Frequency of alcohol use: None Drug Abuse: None Family History: Reviewed & Not Pertinent Patient has suicidal ideation: No Patient has homicidal ideation: No Renal/ Medical History: Denies: Hx Peritoneal Dialysis Past Surgical History: Reports: Hx Abdominal Surgery - spleen, Hx Cardiac Catheterization - stent x2, Hx Cardiac Surgery - cabg x1 - Immunizations Hx Diphtheria, Pertussis, Tetanus Vaccination: Yes Review of Systems - Review of Systems Constitutional: No symptoms reported EENT: No symptoms reported Cardiovascular: Chest pain Respiratory: Short of breath Gastrointestinal: No symptoms reported Genitourinary: No symptoms reported Male Genitourinary: No symptoms reported Musculoskeletal: No symptoms reported Skin: No symptoms reported Hematologic/Lymphatic: No symptoms reported Physical Exam - Vital signs Vitals: Temp Pulse Resp BP Pulse Ox 98.3 F 96 18 130/70 H 96 04/11/18 11:42 04/11/18 11:42 04/11/18 11:42 04/11/18 11:42 04/11/18 11:42 - Notes Notes: PHYSICAL EXAMINATION: GENERAL: Well-appearing, well-nourished and in no acute distress. HEAD: Atraumatic, normocephalic. EYES: Pupils equal round and reactive to light, extraocular movements intact, sclera anicteric, conjunctiva are normal. ENT: Nares patent, oropharynx clear without exudates. Moist mucous membranes. NECK: Normal range of motion, supple without lymphadenopathy LUNGS: wheezing to the left lung base. HEART: S1S2, RRR. ABDOMEN: Soft, nontender, nondistended abdomen. No guarding, no rebound. Musculoskeletal: Normal range of motion, no pitting or edema. No cyanosis. NEUROLOGICAL: Cranial nerves grossly intact. Normal speech, normal gait. Normal sensory, motor exams PSYCH: Normal mood, normal affect. SKIN: Warm, Dry, normal turgor, no rashes or lesions noted. Course - Re-evaluation Re-evalutation: 04/11/18 15:08 EKG: Ventricular rate 97, MI interval 136, QRS duration 136, QTc 473, sinus rhythm, left bundle branch block. EKG compared to previous. Patient does have an old left bundle branch block. 04/11/18 18:10 Labs and imaging obtained. EKG shows a left bundle branch block that is similar to previous. Patient's had no chest pain while in the emergency department. He did have chest pain this AM that was present for a few hours. 2 Sets of troponins were done and both were negative. Patient given duoneb and solumedrol for the Left lung wheezing. He denies shortness of breath. On re- evaluation, patient says he's feeling better. Vital signs are stable. Continues to be chest pain free. No shortness of breath. I instructed the patient to follow-up with his primary care physician this week, to continue taking his medication as directed, and to return to the emergency department for any worsening symptoms. Patient is agreeable to plan of care. 04/11/18 23:22 04/11/18 23:25 - Vital Signs Vital signs: Temp Pulse Resp BP Pulse Ox 98.3 F 96 22 H 150/89 H 96 04/11/18 11:42 04/11/18 11:42 04/11/18 18:17 04/11/18 18:18 04/11/18 18:17 - Laboratory Result Diagrams: 04/11/18 13:29 04/11/18 13:29 Laboratory results interpreted by me: 04/11/18 04/11/18 13:29 13:29 RBC 3.60 L Hgb 12.9 L Hct 37.7 L MCV 105 H MCH 36.0 H RDW 15.3 H Plt Count 485 H Monocytes % 13.7 H Potassium 5.1 H BUN 23 H Discharge - Discharge Clinical Impression: Chest pain Qualifiers: Chest pain type: unspecified Qualified Code(s): R07.9 - Chest pain, unspecified Condition: Good Disposition: HOME, SELF-CARE Instructions: Chest Pain of Unclear Cause ([facility]) Referrals: SUZI DICK NP [NO LOCAL MD] - Follow up as needed
[2018-04-11 18:44] VITALS: BP 150/89
--- NOTE | 2018-04-12 10:40 | EKG REPORT ---
SEVERITY:- ABNORMAL ECG - SINUS RHYTHM LEFT BUNDLE BRANCH BLOCK : Confirmed by: Bk Abreu 12-Apr-2018 10:38:38
== END 2018-04-11 18:18 | disposition home or self-care (01) ==
LOC: ER 11:31
DX: R07.9 Chest pain, unspecified (principal); R06.02 Shortness of breath; I25.10 Atherosclerotic heart disease of native coronary artery without angina pectoris; I10 Essential (primary) hypertension; E78.5 Hyperlipidemia, unspecified
CPT/HCPCS: 93005; 94640; 99285; 96374; 36415; 82553; 82550; 85025; 80053; 84484; 71045; 93010; J2930; J7620

== ENCOUNTER 2019-01-20 09:09 | Emergency (ER) | payer OTHER ==
[2019-01-20] MEDS ORDERED: ACETAMINOPHEN 325 MG TABLET PO ONE (09:32)
--- NOTE | 2019-01-20 09:40 | ER Document Report ---
ED Syncope and Near Syncope - General Mode of Arrival: Medic Information source: Patient TRAVEL OUTSIDE OF THE [place] IN LAST 30 DAYS: No - HPI Patient complains to provider of: Fainting Episode witnessed (by whom): Yes Symptoms prior to episode: Other - Left upper arm pain. No: Abdominal pain, Back pain, Chest pain, Fever, Headache, Lightheaded, Short of breath Position/Activity at time of episode: Standing Quality of pain: Achy Pain Level: 4 Context: Lost consciousness. denies: [place] faint Injury location: LUE Current symptoms: Arm pain. denies: Back pain, Breathing difficulty, Chest pain, Lightheaded, Nausea, Neck pain, Shoulder pain, Short of breath Similar symptoms previously: Yes Recently seen / treated by doctor: No <MADHU SANFORD - Last Filed: 01/20/19 20:18> <CISCO COLLAZO - Last Filed: 01/20/19 23:38> - General Stated Complaint: SYNCOPAL EPISODE Time Seen by Provider: 01/20/19 09:19 Primary Care Provider: BETH LOPEZ MD [TELEMEDICINE] - Follow up as needed Notes: Patient states that he was shopping at [employer] today and felt a sudden urge to have a bowel movement. Patient states that he was trying to get to the bathroom and had a syncopal episode. Patient complains of left upper arm pain from the fall. Patient denies any arm pain prior to passing out. Patient denies any headache, chest pain or shortness of breath. Patient only complains of left arm pain. Patient does admit to a history of having syncopal episodes in the past for which she has been evaluated. Patient states that he just had a heart catheterization last week which was normal. Patient does have a history of seizures although no seizure activity was reported during the syncopal episode. Patient was incontinent of stool after syncopal episode. (MADHU SANFORD) - Related Data Allergies/Adverse Reactions: No Known Allergies Allergy (Verified 04/11/18 11:32) Past Medical History - General Information source: Patient - Social History Smoking Status: Never Smoker Frequency of alcohol use: None Drug Abuse: None Occupation: None Lives with: Spouse/Significant other Family History: Reviewed & Not Pertinent - Past Medical History Cardiac Medical History: Reports: Hx Congestive Heart Failure, Hx Heart Attack, Hx Hypercholesterolemia, Hx Hypertension Neurological Medical History: Reports: Hx Seizures Renal/ Medical History: Denies: Hx Peritoneal Dialysis Malignancy Medical History: Reports Hx Lymphoma - Hodgkin's as a child Past Surgical History: Reports: Hx Abdominal Surgery - spleen, Hx Cardiac Catheterization - stent x2, Hx Cardiac Surgery - cabg x1 - Immunizations Hx Diphtheria, Pertussis, Tetanus Vaccination: Yes <MADHU SANFORD - Last Filed: 01/20/19 20:18> Review of Systems - Review of Systems Constitutional: No symptoms reported. denies: Fever, Recent illness EENT: No symptoms reported Cardiovascular: No symptoms reported. denies: Chest pain, Dizziness, Lightheaded Respiratory: No symptoms reported. denies: Cough, Short of breath Gastrointestinal: Diarrhea. denies: Abdominal pain, Nausea, Vomiting Genitourinary: No symptoms reported Male Genitourinary: No symptoms reported Musculoskeletal: Joint pain - left upper arm, Muscle pain - LUE. denies: Back pain Skin: No symptoms reported Hematologic/Lymphatic: No symptoms reported Neurological/Psychological: Lost consciousness. denies: Confusion, Weakness, Headaches <MADHU SANFORD - Last Filed: 01/20/19 20:18> Physical Exam - General General appearance: Appears well, Alert In distress: None - HEENT Head: Normocephalic, Atraumatic. No: Abrasions, Herrera's sign, Ecchymosis, Rac[place]'s eyes, Tenderness Eyes: Normal Conjunctiva: Normal Pupils: PERRL Nasal: Normal Mouth/Lips: Normal Mucous membranes: Normal Neck: Normal, Supple. No: Lymphadenopathy - Respiratory Respiratory status: No respiratory distress Chest status: Nontender Breath sounds: Normal. No: Rales, Rhonchi, Stridor, Wheezing Chest palpation: Normal - Cardiovascular Rhythm: Regular Heart sounds: S1 appreciated, S2 appreciated - Abdominal Inspection: Normal Distension: No distension Bowel sounds: Normal Tenderness: Nontender Organomegaly: No organomegaly - Back Back: Normal, Nontender. No: Deformity/step-off, CVA tenderness, Vertebra tenderness - Extremities General upper extremity: Normal inspection, Tender - Left upper arm tenderness, Normal ROM General lower extremity: Normal inspection, Normal ROM Shoulder: Normal, Nontender Arm: Tender - Tenderness to the proximal left humerus. No: Abrasion, Deformity, Ecchymosis, Instability, Laceration Elbow: Normal, Nontender Forearm: Normal, Nontender Wrist: Normal, Nontender Hand: Normal, Nontender Hip: Normal, Nontender Knee: Normal, Nontender Ankle: Normal, Nontender Foot: Normal, Nontender - Neurological Neuro grossly intact: Yes Cognition: Normal Orientation: AAOx4 [place] Coma Scale Eye Opening: Spontaneous [place] Coma Scale Verbal: Oriented [place] Coma Scale Motor: Obeys Commands [place] Coma Scale Total: 15 - Psychological Associated symptoms: Normal affect, Normal mood - Skin Skin Temperature: Warm Skin Moisture: Dry Skin Color: Normal <MADHU SANFORD - Last Filed: 01/20/19 20:18> - Vital signs Vitals: Resp Pulse Ox 16 98 01/20/19 09:26 01/20/19 09:26 - HEENT Notes: No cervical midline tenderness step-off or deformity (MADHU SANFORD) Course - Laboratory Result Diagrams: 01/20/19 10:30 01/20/19 10:30 - Diagnostic Test Radiology reviewed: Reports reviewed - EKG Interpretation by Mt EKG shows normal: Sinus rhythm [place]/QRS: LBBB When compared to previous EKG there are: No significant change <MADHU SANFORD - Last Filed: 01/20/19 20:18> - Laboratory Result Diagrams: 01/20/19 10:30 01/20/19 10:30 <CISCO COLLAZO - Last Filed: 01/20/19 23:38> - Re-evaluation Re-evalutation: 01/20/19 12:08 Patient continues to deny any pain except for left upper extremity tenderness. No chest pain no shortness of breath, no back or abdominal pain. Consulted with Dr. Laureano regarding patient presentation. Recommends repeating troponin at 1230. No additional medications advised at this time. Patient reports having a heart catheterization last week that patient reports as being normal. 01/20/19 13:38 Spoke with laborer wrecking and salvaging about delayed repeat troponin test results. States that she will look on the analyzer to find out what is causing the test to be delayed at this time. 01/20/19 14:17 Patient continues to deny any symptoms other than the left upper arm pain which patient does have an incidental proximal humerus fracture. Consulted with hospitalist Dr. tobin regarding concern for need for admission, states that consult needs to be made with cardiology first. Spoke with Dr. Bay who states he will review patient's recent heart cath and will call back. Dr. Laureano does not recommend any medication changes at this time. 01/20/19 14:20 Patient's family is on the phone and states that patient has had a heart cath 2 weeks ago in [place] and states that it was normal. 01/20/19 14:49 Dr. Bay return to call after reviewing patient's heart cath and states that he does have some blockage and recommends transfer to [place] at this time. Dr. Bay reviewed patient's labs as well as his outpatient heart catheterization report and also recommends adding on VQ scan to evaluate for possible PE. 01/20/19 15:01 Call placed to [facility] transfer center. 01/20/19 15:55 Patient returned to room from [facility] complaining of increased left arm pain after being moved around on stretcher. Additional pain medication ordered at this time. 01/20/19 16:35 Placed call again to [facility] transfer [place] (cardiac connections) to inquire about patient's consultation for transfer. Still awaiting return call from transfer center at this time. 01/20/19 17:[address] Jiménez who agrees to accept patient for transfer at [facility] under Dr. Jara's services, does recommend starting heparin drip at this time. Patient without any evidence of PE on V/Q study. Patient continues with a blood pressure of 90/60's. Patient denies any chest pain shortness of breath back pain or abdominal pain at this time. 01/20/19 18:59 Patient does take Brilinta 90 mg twice a day, pt did take morning dose today. Will give evening dose at this time. 01/20/19 19:53 Patient is awaiting transport at this time. Nurse updated regarding need for repeat EKG. Patient's vital signs stable at this time. Blood pressure at this time is 118/84. 01/20/19 20:18 Bedside report and handoff given to ANNA Timmons (MADHU SANFORD) - Vital Signs Vital signs: Temp Pulse Resp BP Pulse Ox 99.3 F 13 113/79 97 01/20/19 09:32 01/20/19 22:31 01/20/19 22:31 01/20/19 22:31 - Laboratory Laboratory results interpreted by me: 01/20/19 01/20/19 10:30 10:30 RDW 14.3 H Plt Count 486 H Potassium 5.5 H BUN 37 H Creatinine 1.42 H Est GFR (MDRD) Non-Af 52 L Labs- Entire Visit 01/20/19 01/20/19 01/20/19 10:30 10:30 10:30 WBC 8.2 RBC 4.72 Hgb 14.3 Hct 42.8 MCV 91 MCH 30.3 MCHC 33.3 RDW 14.3 H Plt Count 486 H Lymph % (Auto) 17.0 [place] % (Auto) 10.6 Eos % (Auto) 1.8 Baso % (Auto) 0.6 Absolute Neuts (auto) 5.7 Absolute Lymphs (auto) 1.4 Absolute Monos (auto) 0.9 Absolute Eos (auto) 0.1 Absolute Basos (auto) 0.1 Seg Neutrophils % 70.0 PT INR APTT Sodium 137.0 Potassium 5.5 H Chloride 99 Carbon Dioxide 26 Anion Gap 12 BUN 37 H Creatinine 1.42 H Est GFR ( Amer) > 60 Est GFR (MDRD) Non-Af 52 L Glucose 108 Calcium 10.2 Total Bilirubin 0.5 Direct Bilirubin 0.3 Neonat Total Bilirubin Not Reportable Neonat Direct Bilirubin Not Reportable Neonat Indirect Bili Not Reportable AST 54 ALT 32 Alkaline Phosphatase 64 Troponin I 1.870 Total Protein 7.9 Albumin 4.9 01/20/19 01/20/19 01/20/19 12:33 15:04 16:40 WBC RBC Hgb Hct MCV MCH MCHC RDW Plt Count Lymph % (Auto) [place] % (Auto) Eos % (Auto) Baso % (Auto) Absolute Neuts (auto) Absolute Lymphs (auto) Absolute Monos (auto) Absolute Eos (auto) Absolute Basos (auto) Seg Neutrophils % PT 13.6 INR 1.04 APTT 23.7 Sodium Potassium Chloride Carbon Dioxide Anion Gap BUN Creatinine Est GFR ( Amer) Est GFR (MDRD) Non-Af Glucose Calcium Total Bilirubin Direct Bilirubin Neonat Total Bilirubin Neonat Direct Bilirubin Neonat Indirect Bili AST ALT Alkaline Phosphatase Troponin I 2.080 2.710 Total Protein Albumin (MADHU SANFORD) - EKG Interpretation by Me Additional EKG results interpreted by me: 01/20/19 09:50 QTc 490 (MADHU SANFORD) Discharge <MADHU SANFORD - Last Filed: 01/20/19 20:18> <CISCO COLLAZO - Last Filed: 01/20/19 23:38> - Discharge Clinical Impression: Non-STEMI (non-ST elevated myocardial infarction) Syncope Qualifiers: Syncope type: unspecified Qualified Code(s): R55 - Syncope and collapse Humerus fracture Qualifiers: Encounter type: initial encounter Humerus Location: proximal Fracture type: closed Fracture morphology: unspecified fracture morphology Laterality: left Qualified Code(s): S42.202A - Unspecified fracture of upper end of left humerus, initial encounter for closed fracture Condition: Fair Disposition: [facility] Referrals: BETH LOPEZ MD [TELEMEDICINE] - Follow up as needed Provider Note <CISCO COLLAZO - Last Filed: 01/20/19 23:38> Provider Note: Patient seen and evaluated by BROCK Sanford, and signed out to me pending transfer to [facility] at the end of her shift once transport was available to take him there. He does have a left humerus fracture and a NSTEMI. He is otherwise stable and pain controlled. Well-appearing. Patient seen and stable for transfer. Vital signs stable. States his arm hurts but otherwise denies any complaints. This was my full involvement in patient care. Please refer to BROCK Sanford's note for full details of the visit. [facility] is here to transfer the patient via ground to [facility]. (CISCO COLLAZO)
[2019-01-20 10:51] LABS: ABSOLUTE BASOPHILS # (AUTO) 0.1 10^3/uL (0.0-0.2); ABSOLUTE EOSINOPHILS # (AUTO) 0.1 10^3/uL (0.0-0.6); ABSOLUTE LYMPHOCYTES (AUTO) 1.4 10^3/uL (0.5-4.7); ABSOLUTE MONOCYTES (AUTO) 0.9 10^3/uL (0.1-1.4); ABSOLUTE NEUT (AUTO) 5.7 10^3/uL (1.7-8.2); BASOPHILS % (AUTO) 0.6 % (0-2); EOSINOPHILS % (AUTO) 1.8 % (0-6); HEMATOCRIT 42.8 % (37.9-51.0); HEMOGLOBIN 14.3 g/dL (13.5-17.0); MEAN CORPUSCULAR HEMOGLOBIN 30.3 pg (27.0-33.4); MEAN CORPUSCULAR HGB CONC 33.3 g/dL (32.0-36.0); MEAN CORPUSCULAR VOLUME 91 fl (80-97); MONOCYTES % (AUTO) 10.6 % (3-13); PLATELET COUNT 486 10^3/uL (150-450); RED BLOOD COUNT 4.72 10^6/uL (4.35-5.55); RED CELL DISTRIBUTION WIDTH 14.3 % (11.5-14.0); TOTAL CELLS COUNTED % (AUTO) 100 %; WHITE BLOOD COUNT 8.2 10^3/uL (4.0-10.5)
--- NOTE | 2019-01-20 11:06 | RADIOLOGY REPORT (SQ) ---
EXAM DESCRIPTION: CT HEAD WITHOUT COMPLETED DATE/TIME: 01/20/2019 10:52 am REASON FOR STUDY: syncope, on anticoagulants COMPARISON: 05/01/2017 TECHNIQUE: Axial images acquired through the brain without intravenous contrast. Images reviewed wi th bone, brain and subdural windows. Additional sagittal and coronal reconstructions were generated. Images stored on PACS. All CT scanners at this facility use dose modulation, iterative reconstruction, and/or weight based d osing when appropriate to reduce radiation dose to as low as reasonably achievable (ALARA). [facility]: Dose Right [facility]: CareDose [facility]: Dose Right [facility]: Teradose 4D [facility]: Smart [employer] RADIATION DOSE: CT Rad equipment meets quality standard of care and radiation dose reduction techniq ues were employed. CTDIvol: 48.6 mGy. DLP: 954 mGy-cm. mGy. LIMITATIONS: None. FINDINGS: VENTRICLES: Normal size and contour. CEREBRUM: No masses. No hemorrhage. No midline shift. No evidence for acute infarction. Few scatte red areas of low density in the white matter most likely chronic small vessel ischemic changes. Unch anged dense benign calcification of the bilateral lentiform nuclei. CEREBELLUM: No masses. No hemorrhage. No alteration of density. No evidence for acute infarction. EXTRAAXIAL SPACES: No fluid collections. No masses. ORBITS AND GLOBE: No intra- or extraconal masses. Normal contour of globe without masses. CALVARIUM: No fracture. PARANASAL SINUSES: No fluid or mucosal thickening. SOFT TISSUES: No mass or hematoma. OTHER: No other significant finding. IMPRESSION: No acute intracranial pathology. Small vessel white matter disease. EVIDENCE OF ACUTE STROKE: NO. COMMENT: Quality ID # [id number]: Final reports with documentation of one or more dose reduction techniques (e.g., Automated exposure control, adjustment of the mA and/or kV according to patient size, use of iterative reconstruction technique) TECHNICAL DOCUMENTATION: JOB ID: [id number] [employer]- All Rights Reserved Reading location - IP/workstation name: [email or web address]
--- NOTE | 2019-01-20 11:11 | RADIOLOGY REPORT (SQ) ---
EXAM DESCRIPTION: CT CERVICAL SPINE WITHOUT COMPLETED DATE/TIME: 01/20/2019 10:52 am REASON FOR STUDY: syncope, fall COMPARISON: 05/01/2017 TECHNIQUE: Axial images acquired through the cervical spine without intravenous contrast. Images re viewed with lung, soft tissue and bone windows. Reconstructed coronal and sagittal MPR images review ed. Images stored on PACS. All CT scanners at this facility use dose modulation, iterative reconstruction, and/or weight based d osing when appropriate to reduce radiation dose to as low as reasonably achievable (ALARA). [facility]: Dose Right [facility]: CareDose [facility]: Dose Right [facility]: Teradose 4D [facility]: Smart [employer]io[employer]ide RADIATION DOSE: CT Rad equipment meets quality standard of care and radiation dose reduction techniq ues were employed. CTDIvol: 20.4 mGy. DLP: 457 mGy-cm. mGy. LIMITATIONS: None. FINDINGS: ALIGNMENT: Anatomic. MINERALIZATION: Osteopenia. VERTEBRAL BODIES: No fractures or dislocation. DISCS: Mild multilevel disc degenerative disease. FACETS, LATERAL MASSES, POSTERIOR ELEMENTS: Multilevel severe facet degenerative disease. No fractur es. No dislocation. No acute findings. HARDWARE: None in the spine. VISUALIZED RIBS: No fractures. LUNG APICES AND SOFT TISSUES: No significant or acute findings. OTHER: Calcific atherosclerosis of the aortic arch and branch vessel with a stent of the left subclav williams artery origin. IMPRESSION: No fracture or static subluxation of the cervical spine. TECHNICAL DOCUMENTATION: JOB ID: [id number] Quality ID # [id number]: Final reports with documentation of one or more dose reduction techniques (e.g., Au tomated exposure control, adjustment of the mA and/or kV according to patient size, use of iterative reconstruction technique) 2010 [employer]- All Rights Reserved Reading location - IP/workstation name: [email or web address]
[2019-01-20 11:25] LABS: ALBUMIN 4.9 g/dL (3.5-5.0); ALKALINE PHOSPHATASE 64 U/L (38-126); ANION GAP 12 (5-19); ASPARTATE AMINO TRANSFERASE 54 U/L (17-59); BILIRUBIN,DIRECT 0.3 mg/dL (0.0-0.4); BILIRUBIN,TOTAL 0.5 mg/dL (0.2-1.3); BLOOD UREA NITROGEN 37 mg/dL (7-20); CALCIUM 10.2 mg/dL (8.4-10.2); CARBON DIOXIDE 26 mmol/L (22-30); CHLORIDE 99 mmol/L (98-107); GLUCOSE 108 mg/dL (75-110); POTASSIUM 5.5 mmol/L (3.6-5.0); TOTAL PROTEIN 7.9 g/dL (6.3-8.2)
--- NOTE | 2019-01-20 11:35 | RADIOLOGY REPORT (SQ) ---
EXAM DESCRIPTION: CHEST 2 VIEWS COMPLETED DATE/TIME: 01/20/2019 11:15 am REASON FOR STUDY: syncope COMPARISON: 04/11/2018 EXAM PARAMETERS: NUMBER OF VIEWS: two views TECHNIQUE: Digital Frontal and Lateral radiographic views of the chest acquired. RADIATION DOSE: NA LIMITATIONS: none FINDINGS: LUNGS AND PLEURA: No opacities, masses or pneumothorax. No pleural effusion. MEDIASTINUM AND HILAR STRUCTURES: No masses or contour abnormalities. HEART AND VASCULAR STRUCTURES: Stable in appearance. No failure. BONES: No acute findings. HARDWARE: None in the chest. OTHER: No other significant finding. IMPRESSION: NO ACUTE RADIOGRAPHIC FINDING IN THE CHEST. TECHNICAL DOCUMENTATION: JOB ID: [id number] [employer]- All Rights Reserved Reading location - IP/workstation name: [email or web address]
--- NOTE | 2019-01-20 11:36 | RADIOLOGY REPORT (SQ) ---
EXAM DESCRIPTION: HUMERUS LEFT COMPLETED DATE/TIME: 01/20/2019 11:15 am REASON FOR STUDY: syncope, arm pain COMPARISON: None. NUMBER OF VIEWS: Two views. TECHNIQUE: Two radiographic images were acquired of the left humerus to include elbow and shoulder i n at least one projection. LIMITATIONS: None. FINDINGS: MINERALIZATION: Normal. BONES: Subtle lucencies in the humeral neck. Suspect nondisplaced fracture. SOFT TISSUES: No obvious swelling or foreign body. OTHER: No other significant finding. IMPRESSION: Suspect nondisplaced fracture of the humeral neck. TECHNICAL DOCUMENTATION: JOB ID: [id number] [employer]- All Rights Reserved Reading location - IP/workstation name: [email or web address]
[2019-01-20] MEDS ORDERED: NORMAL SALINE 1000 ML 1,000 ML IV ONE ×2 (12:09→20:54)
--- NOTE | 2019-01-20 13:19 | EKG REPORT ---
SEVERITY:- ABNORMAL ECG - SINUS RHYTHM LEFT BUNDLE BRANCH BLOCK : Confirmed by: Wayne Carias MD 20-Jan-2019 13:18:31
[2019-01-20 15:22] LABS: INTERNATIONAL RATION (INR) 1.04; PROTHROMBIN TIME 13.6 SEC (11.4-15.4)
[2019-01-20 15:23] LABS: PARTIAL THROMBOPLASTIN TIME 23.7 SEC (23.5-35.8)
[2019-01-20] MEDS ORDERED: FENTANYL CITRATE INJ/PF 100 MCG/2 ML AMPUL IV ONE ×2 (15:55→23:36)
--- NOTE | 2019-01-20 16:01 | RADIOLOGY REPORT (SQ) ---
EXAM DESCRIPTION: NM LUNG VENT/PERF SCAN COMPLETED DATE/TIME: 01/20/2019 3:47 pm REASON FOR STUDY: syncope, elev trop COMPARISON: Same day chest radiograph RADIONUCLIDE AND DOSE: 5.0 millicuries TC-99m MAA Intravenous 30.0 millicuries TC-99m DTPA Inhaled aerosol TECHNIQUE: Eight views of the lungs acquired post ventilation of DTPA aerosol. Eight matching views of the lungs acquired following injection of MAA. LIMITATIONS: None. FINDINGS: VENTILATION: There is extensive bronchial clumping of inhaled radiotracer, which limits ev aluation of the peripheral lungs. Within this limitation, no obvious ventilation defect. PERFUSION: Perfusion images with normal homogenous activity and no wedge-shaped or segmental defects. No ventilation-perfusion mismatches. OTHER: Cardiomegaly. IMPRESSION: There is extensive bronchial clumping of inhaled radiotracer, which limits evaluation of the peripheral lungs. Within this limitation, no obvious ventilation defect. There is no perfusion defect identified. Low probability examination for pulmonary embolism by modified PIOPED criteria. TECHNICAL DOCUMENTATION: JOB ID: [id number] [employer]- All Rights Reserved Reading location - IP/workstation name: [email or web address]
[2019-01-20] MEDS ORDERED: HEPARIN SOD (PORCINE) 1,000 UNIT/ML 10 ML VIAL IV ONE (17:10)
[2019-01-20] MEDS ORDERED: HEPARIN SODIUM,PORCINE/D5W 25,000 UNIT/250 ML RTUINJ IV PRN (17:10)
[2019-01-20] MEDS ORDERED: TICAGRELOR 90 MG TABLET PO ONE (18:59)
[2019-01-20] MEDS ORDERED: HEPARIN SOD (PORCINE) 1,000 UNIT/ML 10 ML VIAL IV PRN (20:13)
[2019-01-21 00:20] VITALS: BP 133/74
--- NOTE | 2019-01-21 07:02 | EKG REPORT ---
SEVERITY:- ABNORMAL ECG - SINUS RHYTHM LEFT BUNDLE BRANCH BLOCK : Confirmed by: Wayne Carias MD 21-Jan-2019 07:02:25
== END 2019-01-21 00:15 | disposition short-term general hospital (02) ==
LOC: ER 09:09
DX: S42.202A Unspecified fracture of upper end of left humerus, initial encounter for closed fracture (principal); I21.4 Non-ST elevation (NSTEMI) myocardial infarction; R55 Syncope and collapse; M79.602 Pain in left arm; R19.7 Diarrhea, unspecified; X58.XXXA Exposure to other specified factors, initial encounter; I11.0 Hypertensive heart disease with heart failure; I50.9 Heart failure, unspecified; I25.2 Old myocardial infarction
CPT/HCPCS: 93005; 96376; 99285; 96361; 96374; 96375; 36415; 85025; 85610; 85730; 80053; 84484; 71046; 73060; 78582; 70450; 72125; 93010; A9540; A9567; J1644 ×2; J3010; J7030; J3490; Q9969

== ENCOUNTER 2019-05-06 16:59 | Emergency (ER) | payer OTHER, MEDICARE ==
--- NOTE | 2019-05-06 17:34 | ER Document Report ---
ED Medical Screen (RME) - General Chief Complaint: Leg Pain Stated Complaint: LEG/FEET PAIN,TREMORS Time Seen by Provider: 05/06/19 17:31 Primary Care Provider: JESSICA,LUCILA [Primary Care Provider] - Follow up as needed Mode of Arrival: Wheelchair Information source: Patient Notes: 54-year-old male presented to ED for complaint of cough congestion vomiting with pedal edema. He does have a history of open heart surgery CHF. He does have bilateral pedal edema that has increased tremendously today. Patient is alert and oriented he is in a wheelchair at this time. States his pain in his feet is about a 5/5 I have greeted and performed a rapid initial assessment of this patient. A comprehensive ED assessment and evaluation of the patient, analysis of test results and completion of medical decision making process will be conducted by an additional ED providers. TRAVEL OUTSIDE OF THE [place] IN LAST 30 DAYS: No - Related Data Allergies/Adverse Reactions: No Known Allergies Allergy (Verified 04/11/18 11:32) Past Medical History - Past Medical History Cardiac Medical History: Reports: Hx Congestive Heart Failure, Hx Heart Attack, Hx Hypercholesterolemia, Hx Hypertension Neurological Medical History: Reports: Hx Seizures Renal/ Medical History: Denies: Hx Peritoneal Dialysis Malignancy Medical History: Reports Hx Lymphoma - Hodgkin's as a child Past Surgical History: Reports: Hx Abdominal Surgery - spleen, Hx Cardiac Catheterization - stent x2, Hx Cardiac Surgery - cabg x1 - Immunizations Hx Diphtheria, Pertussis, Tetanus Vaccination: Yes Physical Exam - Vital signs Vitals: Temp Pulse Resp BP Pulse Ox 98.0 F 116 H 22 H 149/73 H 96 05/06/19 17:12 05/06/19 17:12 05/06/19 17:12 05/06/19 17:12 05/06/19 17:12 Course - Vital Signs Vital signs: Temp Pulse Resp BP Pulse Ox 98.0 F 116 H 22 H 149/73 H 96 05/06/19 17:12 05/06/19 17:12 05/06/19 17:12 05/06/19 17:12 05/06/19 17:12 Doctor's Discharge - Discharge [facility]: [facility] [[facility]] - Follow up as needed
--- NOTE | 2019-05-06 18:06 | RADIOLOGY REPORT (SQ) ---
EXAM DESCRIPTION: CHEST 2 VIEWS COMPLETED DATE/TIME: 05/06/2019 5:54 pm REASON FOR STUDY: Short of breath cough pedal edema history of CHF COMPARISON: AP and lateral views of the chest from 01/23/2019. EXAM PARAMETERS: NUMBER OF VIEWS: two views TECHNIQUE: PA and lateral views of the chest were obtained. RADIATION DOSE: NA LIMITATIONS: none FINDINGS: LUNGS AND PLEURA: Unchanged mild prominence of the interstitium. There is no superimposed consolidation, pleural effusion or pneumothorax. MEDIASTINUM AND HILAR STRUCTURES: No mediastinal or hilar contour abnormality. HEART AND VASCULAR STRUCTURES: The cardiac silhouette and pulmonary vasculature are within normal bernabe its. BONES: No acute findings. HARDWARE: Endovascular stent projecting within the proximal left subclavian artery. OTHER: No other finding. IMPRESSION: No acute cardiopulmonary process. TECHNICAL DOCUMENTATION: JOB ID: [id number] [employer]- All Rights Reserved Reading location - IP/workstation name: [email or web address]
[2019-05-06 18:58] LABS: HEMATOCRIT 42.8 % (37.9-51.0); HEMOGLOBIN 13.5 g/dL (13.5-17.0); MEAN CORPUSCULAR HEMOGLOBIN 28.4 pg (27.0-33.4); MEAN CORPUSCULAR HGB CONC 31.6 g/dL (32.0-36.0); MEAN CORPUSCULAR VOLUME 90 fl (80-97); RED BLOOD COUNT 4.75 10^6/uL (4.35-5.55)
[2019-05-06 19:20] LABS: PLATELET COUNT 646 10^3/uL (150-450)
[2019-05-06 19:23] LABS: ABSOLUTE LYMPHOCYTES# (MANUAL) 0.8 10^3/uL (0.5-4.7); ABSOLUTE MONOCYTES # (MANUAL) 0.7 10^3/uL (0.1-1.4); BAND NEUTROPHILS % (MANUAL) 2 % (3-5); BASOPHILS % (MANUAL) 1 % (0-2); EOSINOPHILS % (MANUAL) 0 % (0-6); LYMPHOCYTES % (MANUAL) 8 % (13-45); MONOCYTES % (MANUAL) 7 % (3-13); NUCLEATED RED BLOOD CELLS 6 /100 WBC (0); SEGMENTED NEUTROPHILS % (MAN) 82 % (42-78); TOTAL CELLS COUNTED 100
[2019-05-06 19:24] LABS: PLATELET CLUMPS PRESENT; PLATELET COMMENT INCREASED; PLATELET GIANT PRESENT; SMUDGE CELLS PRESENT
[2019-05-06 19:27] LABS: ANISOCYTOSIS 1+; POLYCHROMASIA SLIGHT; TEAR DROP CELLS SLIGHT
[2019-05-06 19:30] LABS: ALBUMIN 4.1 g/dL (3.5-5.0); ALKALINE PHOSPHATASE 173 U/L (38-126); ANION GAP 14 (5-19); BLOOD UREA NITROGEN 30 mg/dL (7-20); CALCIUM 9.8 mg/dL (8.4-10.2); CARBON DIOXIDE 25 mmol/L (22-30); CHLORIDE 100 mmol/L (98-107); GLUCOSE 104 mg/dL (75-110); TOTAL PROTEIN 7.8 g/dL (6.3-8.2)
[2019-05-06 19:37] LABS: ASPARTATE AMINO TRANSFERASE > 1500 U/L (17-59)
[2019-05-06 19:44] LABS: TROPONIN I 0.177 ng/mL
[2019-05-06] MEDS ORDERED: FUROSEMIDE INJ/PF 20 MG/2 ML SDV IV ONE (20:57)
--- NOTE | 2019-05-06 21:09 | ER Document Report ---
ED General - General Chief Complaint: Leg Pain Stated Complaint: LEG/FEET PAIN,TREMORS Time Seen by Provider: 05/06/19 17:31 [facility] [[facility]] - Follow up as needed Mode of Arrival: Wheelchair TRAVEL OUTSIDE OF THE [place] IN LAST 30 DAYS: No - HPI Notes: Mr. Marshall is a 54-year-old male with a history of CAD with previous stent placement now presenting with a chief complaint of increased swelling and pain of both lower legs with associated exertional dyspnea. He denies chest pain. Previously had a heart catheterization at [facility] approximately 4 months ago where he was seen by Dr. Nam. Patient says he is fully compliant with his medications and is currently taking furosemide at home as well as Brilinta and aspirin. - Related Data Allergies/Adverse Reactions: No Known Allergies Allergy (Verified 04/11/18 11:32) Past Medical History - General Information source: Patient - Social History Smoking Status: Never Smoker Frequency of alcohol use: None Drug Abuse: None Family History: Reviewed & Not Pertinent Patient has suicidal ideation: No Patient has homicidal ideation: No - Medical History Medical History: Other - History of Hodgkin's disease diagnosed in childhood treated surgically and with radiation therapy. - Past Medical History Cardiac Medical History: Reports: Hx Congestive Heart Failure, Hx Heart Attack, Hx Hypercholesterolemia, Hx Hypertension Neurological Medical History: Reports: Hx Seizures Renal/ Medical History: Denies: Hx Peritoneal Dialysis Malignancy Medical History: Reports Hx Lymphoma - Hodgkin's as a child Past Surgical History: Reports: Hx Abdominal Surgery - spleen, Hx Cardiac Catheterization - stent x6, Hx Cardiac Surgery - cabg x1 - Immunizations Hx Diphtheria, Pertussis, Tetanus Vaccination: Yes Review of Systems - Review of Systems Notes: Constitutional: Negative for fever. HENT: Negative for sore throat. Eyes: Negative for visual changes. Cardiovascular: Negative for chest pain. Respiratory: As per HPI. Gastrointestinal: Negative for abdominal pain, vomiting or diarrhea. Genitourinary: Negative for dysuria. Musculoskeletal: As per HPI. Skin: Negative for rash. Neurological: Negative for headaches, weakness or numbness. 10 point ROS negative except as marked above and in HPI. Physical Exam - Vital signs Vitals: Temp Pulse Resp BP Pulse Ox 98.0 F 116 H 22 H 149/73 H 96 05/06/19 17:12 05/06/19 17:12 12/10/19 17:12 05/06/19 17:12 05/06/19 17:12 - Notes Notes: GENERAL: Chronically ill-appearing male who looks somewhat older than stated age. SKIN: Good turgor no rashes. HEAD: Normocephalic atraumatic. EYES: PERRLA. Conjunctivae and sclerae clear. EARS: CANALS AND TMS CLEAR. NOSE: CLEAR. MOUTH: Moist mucosa. Good dentition. No stridor or edema. No drooling. NECK: Supple. No masses or thyromegaly. No adenopathy. Carotids 2+ without bruits. No JVD. BACK: Symmetrical without tenderness. CHEST: Respirations unlabored. Rales both bases which clear with cough. HEART: Regular rhythm. No murmur gallop or rub. ABDOMEN: Large healed midline surgical scar present. Soft nontender without masses, organomegaly or rebound. Bowel sounds normally active. No bruits. GENITALIA: Deferred. EXTREMITIES: 3+ pretibial edema bilaterally with some associated redness. No palpable cords. No calf tenderness. Cap refill less than 1.5 seconds. Dorsalis pedis and posterior tibial pulses 3+ and symmetrical. NEUROLOGICAL: GCS 15. Alert and oriented x3. Normal gait. Fluent speech. Cranial nerves II through XII intact. Sensorimotor and cerebellar normal. Normal tone. Course - Re-evaluation Re-evalutation: 05/06/19 21:09 EKG shows pre-existing left bundle branch block. Troponin is slightly elevated here of 0.125. BNP is markedly elevated around 1200. Radiologist is read chest x-ray is no active disease but to me it appears to show some vascular congestion. Current presentation is most consistent with acute non-STEMI and acute decompensated heart failure. I will place patient on low-flow oxygen and give him some IV Lasix. All of his recent cardiac care has been at [facility] and he has required previous interventional capabilities not really available in this hospital tonight. I will consult with cardiology at [facility] by telephone and try to coordinate transfer. 05/06/19 21:54 Current findings were discussed with Dr. Harrison the day trader on-call at [facility]. Patient has been accepted for transfer by Dr. Nam Riddle. EMTALA completed. - Vital Signs Vital signs: Temp Pulse Resp BP Pulse Ox 98.0 F 108 H 20 113/79 94 05/06/19 20:07 05/06/19 20:07 05/06/19 20:07 05/06/19 20:07 05/06/19 20:07 - Laboratory Result Diagrams: 05/06/19 18:20 05/06/19 18:20 Laboratory results interpreted by me: 05/06/19 05/06/19 05/06/19 18:20 18:20 18:20 MCHC 31.6 L RDW 18.0 H Plt Count 646 H Seg Neuts % (Manual) 82 H Band Neutrophils % 2 L Lymphocytes % (Manual) 8 L Abs Neuts (Manual) 8.4 H BUN 30 H Total Bilirubin 3.0 H Direct Bilirubin 1.0 H AST > 1500 H Alkaline Phosphatase 173 H NT-Pro-B Natriuret Pep 1210 H - Diagnostic Test Radiology reviewed: Reports reviewed - EKG Interpretation by Me Additional EKG results interpreted by me: 05/06/19 21:11 Sinus tachycardia. Rate 110. Pre-existing left bundle branch block. I reviewed comparison tracing from 01/20/2019. Discharge - Discharge Clinical Impression: Acute decompensated heart failure, Non-STEMI (non-ST elevated myocardial infarction) Condition: Fair Disposition: [facility]errals: [facility] [Primary [facility]] - Follow up as needed
[2019-05-06 22:44] LABS: APPEARANCE,URINE SLIGHTLY-CLOUDY; BILIRUBIN,URINE NEGATIVE (NEGATIVE); COLOR,URINE YELLOW; GLUCOSE, URINE NEGATIVE (NEGATIVE); KETONES,URINE TRACE mg/dL (NEGATIVE); PROTEIN,URINE 30 mg/dL (NEGATIVE); URINE SPECIFIC GRAVITY 1.014
[2019-05-07 06:57] LABS: ALBUMIN 3.9 g/dL (3.5-5.0); ALKALINE PHOSPHATASE 157 U/L (38-126); ANION GAP 12 (5-19); BILIRUBIN,DIRECT 0.9 mg/dL (0.0-0.4); BILIRUBIN,TOTAL 2.9 mg/dL (0.2-1.3); BLOOD UREA NITROGEN 28 mg/dL (7-20); CALCIUM 9.4 mg/dL (8.4-10.2); CARBON DIOXIDE 27 mmol/L (22-30); CHLORIDE 101 mmol/L (98-107); GLUCOSE 92 mg/dL (75-110); POTASSIUM 4.6 mmol/L (3.6-5.0); TOTAL PROTEIN 7.5 g/dL (6.3-8.2)
[2019-05-07 06:58] LABS: HEMATOCRIT 41.1 % (37.9-51.0); HEMOGLOBIN 13.3 g/dL (13.5-17.0); MEAN CORPUSCULAR HEMOGLOBIN 29.2 pg (27.0-33.4); MEAN CORPUSCULAR HGB CONC 32.5 g/dL (32.0-36.0); MEAN CORPUSCULAR VOLUME 90 fl (80-97); PLATELET COUNT 583 10^3/uL (150-450); RED BLOOD COUNT 4.56 10^6/uL (4.35-5.55); RED CELL DISTRIBUTION WIDTH 18.5 % (11.5-14.0); WHITE BLOOD COUNT 10.4 10^3/uL (4.0-10.5)
[2019-05-07 07:04] LABS: ASPARTATE AMINO TRANSFERASE 924 U/L (17-59)
[2019-05-07 07:13] LABS: ABSOLUTE LYMPHOCYTES# (MANUAL) 1.7 10^3/uL (0.5-4.7); ABSOLUTE MONOCYTES # (MANUAL) 0.7 10^3/uL (0.1-1.4); BASOPHILS % (MANUAL) 2 % (0-2); EOSINOPHILS % (MANUAL) 0 % (0-6); LYMPHOCYTES % (MANUAL) 16 % (13-45); MONOCYTES % (MANUAL) 7 % (3-13); NUCLEATED RED BLOOD CELLS 3 /100 WBC (0); SEGMENTED NEUTROPHILS % (MAN) 75 % (42-78); TOTAL CELLS COUNTED 100
[2019-05-07 07:14] LABS: ANISOCYTOSIS 1+; PLATELET CLUMPS PRESENT; PLATELET COMMENT INCREASED; PLATELET LARGE PRESENT; POIKILOCYTOSIS 2+
[2019-05-07] MEDS ORDERED: MORPHINE SULFATE 10 MG/ML INJ IV ONE (11:29)
--- NOTE | 2019-05-07 12:15 | EKG REPORT ---
SEVERITY:- ABNORMAL ECG - SINUS TACHYCARDIA LEFT BUNDLE BRANCH BLOCK : Confirmed by: Wayne Carias MD 07-May-2019 12:15:12
[2019-05-07 19:29] VITALS: BP 115/76
== END 2019-05-07 20:02 | disposition short-term general hospital (02) ==
LOC: ER 16:59
DX: M79.604 Pain in right leg (principal); M79.605 Pain in left leg; M79.89 Other specified soft tissue disorders; I25.10 Atherosclerotic heart disease of native coronary artery without angina pectoris; I50.9 Heart failure, unspecified; I25.2 Old myocardial infarction; I44.7 Left bundle-branch block, unspecified; I21.4 Non-ST elevation (NSTEMI) myocardial infarction; I11.0 Hypertensive heart disease with heart failure
CPT/HCPCS: 93005; 99285; 96374; 36415; 85025; 80053; 81001; 84484; 83880; 71046; 93010; J1940; J2270

== ENCOUNTER 2020-02-04 13:41 | Emergency (ER) | payer OTHER, MEDICARE ==
--- NOTE | 2020-02-04 13:58 | ER Document Report ---
ED Medical Screen (RME) - General Chief Complaint: Fainting Stated Complaint: SYNCOPE Time Seen by Provider: 02/04/20 13:50 Primary Care Provider: [facility] [Primary Care Provider] - Follow up as needed Mode of Arrival: Wheelchair Information source: Patient Notes: 54-year-old male presented to ED for complaint of syncopal episode this morning. He states he was walking across the kitchen floor and then found himself laying on the floor. He states he did injure his left wrist. He does have a history of an RI high cholesterol high blood pressure Hodgkin's disease as a child but that is in remission. He has had a bypass with a one-vessel and then he has had a multiple heart caths with a total of 10 stents. He states he does not smoke drink or use any drugs. He states he does live with his family. He is alert oriented respirations regular and unlabored denying any chest pain at this moment. I have greeted and performed a rapid initial assessment of this patient. A comprehensive ED assessment and evaluation of the patient, analysis of test results and completion of medical decision making process will be conducted by an additional ED providers. TRAVEL OUTSIDE OF THE [place] IN LAST 30 DAYS: No - Related Data Allergies/Adverse Reactions: No Known Allergies Allergy (Verified 04/11/18 11:32) Past Medical History - Past Medical History Cardiac Medical History: Reports: Hx Congestive Heart Failure, Hx Heart Attack, Hx Hypercholesterolemia, Hx Hypertension Neurological Medical History: Reports: Hx Seizures Renal/ Medical History: Denies: Hx Peritoneal Dialysis Malignancy Medical History: Reports Hx Lymphoma - Hodgkin's as a child Past Surgical History: Reports: Hx Abdominal Surgery - spleen, Hx Cardiac Catheterization - stent x6, Hx Cardiac Surgery - cabg x1 - Immunizations Hx Diphtheria, Pertussis, Tetanus Vaccination: Yes Physical Exam - Vital signs Vitals: Temp Pulse Resp BP Pulse Ox 98.7 F 102 H 18 136/70 H 97 02/04/20 13:46 02/04/20 13:46 02/04/20 13:46 02/04/20 13:46 02/04/20 13:46 Course - Vital Signs Vital signs: Temp Pulse Resp BP Pulse Ox 98.7 F 102 H 18 136/70 H 97 02/04/20 13:46 02/04/20 13:46 02/04/20 13:46 02/04/20 13:46 02/04/20 13:46 Doctor's Discharge - Discharge [facility]errals: [facility] [[facility]] - Follow up as needed
[2020-02-04 14:39] LABS: ABSOLUTE BASOPHILS # (AUTO) 0.1 10^3/uL (0.0-0.2); ABSOLUTE EOSINOPHILS # (AUTO) 0.4 10^3/uL (0.0-0.6); ABSOLUTE LYMPHOCYTES (AUTO) 2.4 10^3/uL (0.5-4.7); ABSOLUTE MONOCYTES (AUTO) 1.3 10^3/uL (0.1-1.4); ABSOLUTE NEUT (AUTO) 6.6 10^3/uL (1.7-8.2); BASOPHILS % (AUTO) 1.2 % (0-2); EOSINOPHILS % (AUTO) 3.9 % (0-6); HEMATOCRIT 39.9 % (37.9-51.0); HEMOGLOBIN 13.1 g/dL (13.5-17.0); LYMPHOCYTES % (AUTO) 21.8 % (13-45); MEAN CORPUSCULAR HEMOGLOBIN 31.7 pg (27.0-33.4); MEAN CORPUSCULAR HGB CONC 32.8 g/dL (32.0-36.0); MEAN CORPUSCULAR VOLUME 97 fl (80-97); MONOCYTES % (AUTO) 12.3 % (3-13); PLATELET COUNT 523 10^3/uL (150-450); RED BLOOD COUNT 4.12 10^6/uL (4.35-5.55); RED CELL DISTRIBUTION WIDTH 13.9 % (11.5-14.0); SEGMENTED NEUTROPHILS % (AUTO) 60.8 % (42-78); TOTAL CELLS COUNTED % (AUTO) 100 %; WHITE BLOOD COUNT 10.9 10^3/uL (4.0-10.5)
--- NOTE | 2020-02-04 14:57 | RADIOLOGY REPORT (SQ) ---
EXAM DESCRIPTION: WRIST LEFT 3 VIEWS IMAGES COMPLETED DATE/TIME: 02/04/2020 2:30 pm REASON FOR STUDY: Wrist pain injury when fell COMPARISON: None. NUMBER OF VIEWS: Three views. TECHNIQUE: AP, lateral, and oblique radiographic images acquired of the left wrist. LIMITATIONS: None. FINDINGS: MINERALIZATION: Normal. BONES: The corticated osseous fragment anterior to the ulnar side of the distal radius could represen t the sequela of a prior injury. SOFT TISSUES: No soft tissue swelling or radiopaque foreign body. OTHER: No other finding. IMPRESSION: The corticated osseous fragment anterior to the ulnar side of the distal radius could re present the sequela of a prior injury. There is no acute osseous abnormality of the left wrist. TECHNICAL DOCUMENTATION: JOB ID: [id number] 2010 [employer]- All Rights Reserved Reading location - IP/workstation name: [email or web address]
[2020-02-04 14:59] LABS: ALBUMIN 4.7 g/dL (3.5-5.0); ALKALINE PHOSPHATASE 59 U/L (38-126); ANION GAP 11 (5-19); ASPARTATE AMINO TRANSFERASE 27 U/L (17-59); BILIRUBIN,DIRECT 0.2 mg/dL (0.0-0.4); BILIRUBIN,TOTAL 0.4 mg/dL (0.2-1.3); BLOOD UREA NITROGEN 26 mg/dL (7-20); CALCIUM 9.5 mg/dL (8.4-10.2); CARBON DIOXIDE 23 mmol/L (22-30); CHLORIDE 102 mmol/L (98-107); CREATINE KINASE 139 U/L (55-170); GLUCOSE 110 mg/dL (75-110); POTASSIUM 4.9 mmol/L (3.6-5.0); TOTAL PROTEIN 7.8 g/dL (6.3-8.2)
[2020-02-04 15:10] LABS: APPEARANCE,URINE CLEAR; BILIRUBIN,URINE NEGATIVE (NEGATIVE); COLOR,URINE YELLOW; GLUCOSE, URINE NEGATIVE (NEGATIVE); KETONES,URINE NEGATIVE (NEGATIVE); LEUKOCYTE ESTERASE,URINE NEGATIVE (NEGATIVE); NITRITE,URINE NEGATIVE (NEGATIVE); PROTEIN,URINE NEGATIVE (NEGATIVE); URINE SPECIFIC GRAVITY 1.011; UROBILINOGEN,URINE NEGATIVE mg/dL (<2.0)
[2020-02-04 15:26] LABS: CREATINE KINASE MB 2.03 ng/mL (<4.55); TROPONIN I 0.023 ng/mL
--- NOTE | 2020-02-04 17:09 | ER Document Report ---
ED Dizziness/Weakness - General Chief Complaint: Syncope Stated Complaint: SYNCOPE Time Seen by Provider: 02/04/20 13:50 Primary [facility] Provider: [facility] [Primary [facility]] - Follow up as needed Mode of Arrival: Wheelchair Information source: Patient TRAVEL OUTSIDE OF THE [place] IN LAST 30 DAYS: No - HPI Notes: Patient presents after syncopal episode. Patient states that he had stood up and was walking across the kitchen and the next thing he knew he was on the floor. He states he has had multiple syncopal episodes in the past. He states they have not been able to tell him why he has these. He states after an episo de like this last year he had to have some stents placed in his heart. He states he does have multiple stents in his heart as well as history of a CABG. He states he is not recently been having any chest pain and did not have any today nor does he have any now. He states that shortness of breath is chronic and it is been no worse than normal usually. He currently denies any symptoms other than some left wrist pain. He states when he fell he must of injured his left wrist. The left wrist pain is constant and radiates of the left arm. Is worse with movement and better with rest. It is sharp. He denies any vomiting or diarrhea. No recent cold symptoms. - Related Data Allergies/Adverse Reactions: No Known Allergies Allergy (Verified 04/11/18 11:32) Past Medical History - General Information source: Patient - Social History Smoking Status: Never Smoker Frequency of alcohol use: None Drug Abuse: None Family History: Reviewed & Not Pertinent - Past Medical History Cardiac Medical History: Reports: Hx Congestive Heart Failure, Hx Heart Attack, Hx Hypercholesterolemia, Hx Hypertension Neurological Medical History: Reports: Hx Seizures Renal/ Medical History: Denies: Hx Peritoneal Dialysis Malignancy Medical History: Reports Hx Lymphoma - Hodgkin's as a child Past Surgical History: Reports: Hx Abdominal Surgery - spleen, Hx Cardiac Catheterization - stent x6, Hx Cardiac Surgery - cabg x1 - Immunizations Hx Diphtheria, Pertussis, Tetanus Vaccination: Yes Review of Systems - Review of Systems Constitutional: denies: Chills, Fever Cardiovascular: denies: Chest pain, Palpitations Respiratory: Short of breath - Chronic. denies: Cough -: Yes All other systems reviewed and negative Physical Exam - Vital signs Vitals: Temp Pulse Resp BP Pulse Ox 98.7 F 102 H 18 136/70 H 97 02/04/20 13:46 02/04/20 13:46 02/04/20 13:46 02/04/20 13:46 02/04/20 13:46 Interpretation: Tachycardic - General General appearance: Appears well, Alert - HEENT Head: Normocephalic, Atraumatic Eyes: Normal Pupils: PERRL - Respiratory Respiratory status: No respiratory distress Chest status: Nontender Breath sounds: Normal Chest palpation: Normal - Cardiovascular Rhythm: Regular - Patient was tachycardic initially but is no longer tachycardic on my exam. Orthostatics are normal. Heart sounds: Normal auscultation Murmur: No - Abdominal Inspection: Normal Distension: No distension Bowel sounds: Normal Tenderness: Nontender Organomegaly: No organomegaly - Back Back: Normal, Nontender - Extremities General upper extremity: Normal temperature, Other - Left wrist has some mild diffuse swelling. He has limited range of motion of the left wrist secondary to pain. He does have a 2+ radial pulse on the left. He can flex and extend all fingers. General lower extremity: Normal inspection, Nontender, Normal color, Normal ROM, Normal temperature, Normal weight bearing. No: Darnell's sign - Neurological Neuro grossly intact: Yes Cognition: Normal Orientation: AAOx4 Dana Coma Scale Eye Opening: Spontaneous Paola Coma Scale Verbal: Oriented Paola Coma Scale Motor: Obeys Commands Paola Coma Scale Total: 15 Speech: Normal Motor strength normal: LUE, RUE, LLE, RLE Sensory: Normal - Psychological Associated symptoms: Normal affect, Normal mood - Skin Skin Temperature: Warm Skin Moisture: Dry Skin Color: Normal Course - Re-evaluation Re-evalutation: 02/04/20 17:10 Patient presents with syncope. It was right after he stood up which seems consistent with positional syncope upon standing especially in light of patient's history of blood pressure medications. His current orthostatics are normal. He has had no new chest pain or new shortness of breath. No other new symptoms. I did call and discussed the case with Dr. Skelton the fowl blood tester. He states he will see the patient in the office and he took down the patient's name and demographics and states he will call the patient for an appointment. I think this is a reasonable disposition as patient is currently asymptomatic oth er than some wrist pain. X-ray of this wrist shows no new injury however I will splint the patient in case of occult injury and refer him to orthopedics should the pain continue. - Vital Signs Vital signs: Temp Pulse Resp BP Pulse Ox 98.7 F 89 24 H 112/84 97 02/04/20 13:46 02/04/20 16:59 02/04/20 16:01 02/04/20 16:59 02/04/20 16:01 - Laboratory Result Diagrams: 02/04/20 14:14 02/04/20 14:14 Laboratory results interpreted by me: 02/04/20 02/04/20 14:14 14:14 WBC 10.9 H RBC 4.12 L Hgb 13.1 L Plt Count 523 H Sodium 136.0 L BUN 26 H Creatinine 1.55 H Est GFR ( Amer) 57 L Est GFR (MDRD) Non-Af 47 L - Diagnostic Test Radiology reviewed: Image reviewed, Reports reviewed - EKG Interpretation by Me EKG shows normal: Sinus rhythm Rate: Normal - 92 Rhythm: NSR Palmer/QRS: LBBB Procedures - Immobilization Left Wrist Time completed: 17:11 Pre-Proc Neuro Vasc Exam: Normal Immobilizer type: Cock-up Performed by: RN Post-Proc Neuro Vasc Exam: Normal Alignment checked and good: Yes Discharge - Discharge Clinical Impression: Syncope and collapse Condition: Stable Disposition: HOME, SELF-CARE Instructions: Syncopal Episode ([facility]), Wrist Sprain ([facility]) Additional Instructions: Dr. Skelton, the fowl blood tester, will call you this week to arrange an appointment in his office. Forms: Return to Work Referrals: THERESA SKELTON MD [ACTIVE STAFF] - Follow up in 3-5 days
[2020-02-04 17:42] VITALS: BP 138/83
--- NOTE | 2020-02-04 20:51 | EKG REPORT ---
SEVERITY:- ABNORMAL ECG - SINUS RHYTHM LEFT BUNDLE BRANCH BLOCK : Confirmed by: Joaquim Avila MD 04-Feb-2020 20:50:50
== END 2020-02-04 17:42 | disposition home or self-care (01) ==
LOC: ER 13:41
DX: R55 Syncope and collapse (principal); R06.02 Shortness of breath; M25.532 Pain in left wrist; W19.XXXA Unspecified fall, initial encounter; Y93.89 Activity, other specified; M25.432 Effusion, left wrist; I44.7 Left bundle-branch block, unspecified; I10 Essential (primary) hypertension; I25.2 Old myocardial infarction; Z95.5 Presence of coronary angioplasty implant and graft; Z95.1 Presence of aortocoronary bypass graft; Z85.71 Personal history of Hodgkin lymphoma
CPT/HCPCS: 36415; 80053; 81001; 82550; 82553; 82962; 84484; 85025; 93005; 93010; 99285